=== PATIENT | female | born 1955 | race Caucasian/White ===

== ENCOUNTER 2017-12-24 21:46 | Inpatient (IN) | payer MEDICARE, SELFPAY ==
[2017-12-24 21:47] VITALS: BP 124/67; PULSE 100; RESP 22; TEMP 38.6; O2SAT 86; BMI 40.1
[2017-12-24 22:11] VITALS: BP 108/65; PULSE 91; RESP 23; O2SAT 92
--- NOTE | 2017-12-24 22:31 | CT_ITS ---
STUDY: CT BRAIN WITHOUT CONTRAST REASON FOR EXAM: Female, 62 years old. History of brain and lung cancer. Fever RADIATION DOSAGE (If Supplied By Facility): CTDIvol = ( 44.99 ) mGy, DLP = ( 812.98 ) mGycm TECHNIQUE: Transaxial CT imaging of the brain was performed without administration of intravenous contrast material. Individualized dose optimization techniques were used for this CT. COMPARISON: None. FINDINGS: There is no scalp hematoma or any abnormal scalp lesions. The calvarium is intact with no osteolytic or osteoblastic lesions and no fractures The basal cisterns, cortical sulci and ventricles are normal with no midline shift. No developmental anomalies of the ventricles Nonspecific microangiopathic changes involving the white matter tracts. There is no intra or extra-axial hemorrhage or tumor mass and no evidence for acute infarction The orbits and paranasal sinuses are normal. There is a right sided mastoiditis. The skull base and the upper cervical spine are also normal. CT/Brain/Head without Contrast IMPRESSION: No acute findings in the brain. No metastatic foci Right-sided mastoiditis Electronically Signed: Raul Walker, at 0:09 EST Tel , Service support ,
--- NOTE | 2017-12-24 22:52 | EKG12_ITS ---
Test Reason : FEVER Blood Pressure : / mmHG Vent. Rate : 092 BPM Atrial Rate : 092 BPM P-R Int : 136 ms QRS Dur : 084 ms QT Int : 354 ms P-R-T Axes : 033 012 047 degrees QTc Int : 437 ms Normal sinus rhythm Normal ECG Confirmed by ANDIE RENTERIA MD ([id number]), primer expeditor and drier MICAH DRAKE ([id number] on 12/30/2017 2:04:13 PM Referred By: CHRISTIN Confirmed By:ANDIE RENTERIA MD
[2017-12-24 23:04] LABS: Bacteria 0 SEEN /hpf (None Seen); Mucous, Urine 0 SEEN /hpf (<or=2+); Red Blood Cells-Urine 0 SEEN /hpf (0-5); Squamous Epithelial Cells - UA 0 SEEN /hpf (5-10); White Blood Cells 0 SEEN /hpf (0-5)
[2017-12-24 23:09] LABS: Color, Urine Yellow (Yellow); Glucose, Dipstick Normal (Normal); Ketone-Dipstick Negative (Negative); Leukocyte Esterase-Dipstick Negative /ul (Negative); Nitrite-Dipstick Negative (Negative); Occult Blood-Urine 10 /ul (Negative); Protein-Dipstick Negative (Negative); Urine Bilirubin Dipstick Negative (Negative); Urine Clarity Clear (Clear); Urine Urobilinogen 1 mg/dl (Normal)
[2017-12-24] MEDS: 0.9% Normal Saline 1,000 ML 1000 ML IV (23:10)
[2017-12-24 23:16] VITALS: BP 110/56; PULSE 93; RESP 18; O2SAT 90
[2017-12-24] MEDS: Acetaminophen 325 MG Tablet 650 MG PO (23:17)
[2017-12-24 23:21] LABS: Allen Test POS; Base Excess 6 mmol/L (-2 to +2); Bicarbonate 29.2 mmol/L (22-26); Blood Gas Specimen Type ART; O2 Delivery Device Nasal Can; PO2 55 mmHG (75-100); SITE R Radial; SO2 91 % (95-99); Time Given 2311; Total Carbon Dioxide 30 mmol/L; pH 7.52 (7.35-7.45)
[2017-12-24 23:24] LABS: Absolute Lymphocyte Count 0.41 X10^3/ul (0.83-4.51); Absolute Neutrophil Count 3.6 X10^3/uL (2.0-7.7); Basophil# 0.01 X10^3/uL; Basophil% 0.2 % (0-1); Eosinophil# 0.12 X10^3/uL; Eosinophils% 2.9 % (0-5); Hematocrit 35.4 % (37-47); Hemoglobin 11.6 g/dl (12.0-15.0); Lymphocyte # 0.41 X10^3/ul (4.0); Lymphocyte % 9.8 % (19-41); Mean Corp Hgb Conc 32.8 g/gl (32-36); Mean Corpuscular Hgb 27.9 pg (27.0-32.0); Mean Corpuscular Volume 85.1 fL (81-99); Mean Platelet Vol. 8.7 fl (6.2-12.0); Monocyte# 0.05 X10^3/uL; Monocyte% 1.2 % (0-10); Neutrophil # 3.61 X10^3/uL (2.7-7.7); Neutrophil % 85.9 % (47-70); Platelet Count 76 K/mm3 (150-450); RBC Distribution Width CV 16.7 % (11.6-14.6); RBC Distribution Width SD 51.5 fl (35.1-43.9); Red Blood Count 4.16 M/mm3 (4.2-5.4); White Blood Count 4.2 K/mm3 (4.4-11.0)
[2017-12-24 23:25] LABS: Differential Indicated SCAN CRITERIA MET; POSITIVE COUNT NO; POSITIVE DIFFERENTIAL YES; POSITIVE MORPHOLOGY NO
[2017-12-24 23:30] LABS: Partial Thromboplast Time 31.1 Seconds (24.1-36.2)
[2017-12-24 23:36] LABS: ALB/GLOB Ratio 0.6 RATIO (0.9-2.4); AST(SGOT) 29 U/L (15-37); Alanine Aminotransfer ALT/SGPT 17 U/L (13-56); Albumin, Serum 2.6 g/dL (3.2-5.0); Alkaline Phosphatase 98 U/L (45-117); Anion Gap 5 (5-15); BUN 19 mg/dL (7-18); BUN/Creat Ratio 21.3 RATIO (10-20); Calcium,Total 8.8 mg/dL (8.5-10.1); Chloride 99 mmol/L (98-107); Creatinine, Serum 0.89 mg/dL (0.55-1.02); EST Glomerular Filtration Rate 68 mL/min (>60); Est Glom Filt Rate - Afr Amer 82 mL/min (>60); Globulin 4.1 g/dL (2.2-4.2); Glucose 125 mg/dL (74-106); Potassium 4.5 mmol/L (3.5-5.1); Protein, Total 6.7 g/dL (6.4-8.2); Sodium Level 136 mmol/L (136-145)
[2017-12-24 23:48] LABS: Lactic Acid 1.3 mmol/L (0.4-2.0)
--- NOTE | 2017-12-24 23:50 | RAD_ITS ---
STUDY: X-RAY CHEST REASON FOR EXAM: Female, 62 years old. Fever TECHNIQUE: 2 views COMPARISON: May 30, 2017 FINDINGS: There is interval development of increased interstitial markings in the left perihilar region. No pleural effusions Normal size heart. Normal mediastinum and [place]. Normal visualized pulmonary arteries. Normal visualized aortic arch and descending thoracic aorta. Normal visualized thoracic spine. Normal visualized ribs, clavicles, and shoulders. There is no demonstrated abnormality of the visualized soft tissue structures of the upper abdomen. RAD/Chest PA and Lateral IMPRESSION: Interval development of a left perihilar opacity. Pneumonia suspected Electronically Signed: Raul Walker, at 0:14 EST Tel , Service support ,
[2017-12-25] VITALS (16 sets, daily range): BP systolic 99–127; BP diastolic 47–57; PULSE 76–99; RESP 16–24; TEMP 36.9–38.2; O2SAT 6–98; BMI 37.3
--- NOTE | 2017-12-25 00:15 | ED.VISSUMM ---
- ER Visit Summary Date of Service: 12/25/17 Chief Complaint: Fever, chills and cough History of Present Illness: The patient is a 62 F who has history of metastatic small cell carcinoma the lung presented to the emergency department because of fever, chills with cough. She she received chemo today. This completed her 3 day course. She underwent gamma knife surgery 3 weeks ago for metastatic lesions of the brain. She does complain of headache. She denies photophobia or stiffness of her neck. She does complain of shortness of breath and cough. Cough is nonproductive. She denies any pleuritic chest pain. She does complain of nausea without vomiting or diarrhea. She denies dysuria, frequency, urgency or hematuria. She denies any skin lesion or rash. She complains of generalized weakness. She denies trouble with her balance. Review of systems otherwise negative. 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 Physical Examination: Temperature 101.5 with heart rate of 100 and Restoril 22. Pulse ox was 86% on 3 L. She does wear oxygen at night but not during the day. She is not alert nor she oriented to time. Head is atraumatic no cephalic. Pupils equal round reactive. Other than C funduscopic exam. TMs are normal. Mucosa is dry. Posterior pharynx without erythema or exudate. Uvula midline. Trach is midline. Lungs reveal rales bilaterally left greater than right. Heart is rapid and regular without murmur, gallop or rub. Abdomen is soft and nontender. She appears slightly pale. Cranial 2 through 12 intact. Motor sensory exam is normal. Gait was not observed. Test Results: EKG reveals a sinus rhythm rate of 92 with no ischemic changes. Chest x-ray reveals consolidation left side that is new from May 2017. White count is 4.2 thousand with 86 segs no bands 10 lymphs. Electrode panel was marked for slight elevation in glucose and BUN of 125 and 19 respectively. Coags are normal. Urine is negative. Lactate is 1.3. ABG on 5 L was obtained. PH 7.52, PC O2 30, PaO2 55, bicarb 29.2 with a base excess of +6. Saturation 91%. Reveals a alkalemia. With a significant AA gradient. Emergency Department Course and Treatment: Patient has 3 out of 5 sirs criteria and since she recently was hospitalized for gamma knife treatment and recent chemotherapy she was treated for healthcare acquired pneumonia which was presumed based on respiratory findings and symptoms. Because of her allergies she received Azactam and levofloxacin. Treatment Plan: Oxygen therapy, IV antibiotics, fluid bolus and continued observation in the hospital Disposition: Admit [facility]. A DNR sheet was completed by ct. She has no CPR no intubation. Impression: 1. Healthcare acquired pneumonia, left 2. Respiratory failure with hypoxia 3. Sepsis 4. History of metastatic small cell carcinoma the lung 5. History of coronary disease 6. Hyperglycemia type II diabetic 7. History of spontaneous subarachnoid hemorrhage, remote This note was generated with [employer] dictation software. It may contain incorrect words, spelling, and punctuation that were not noted in review of the chart prior to signing ED Disposition - Plan for ED Patient: Chief Complaint: Fever Referrals: Vineet Cabral MD [Primary Care Provider] -
--- NOTE | 2017-12-25 00:23 | ED.DCSUM_ITS ---
- ER Visit Summary Date of Service: 12/25/17 Chief Complaint: Fever, chills and cough History of Present Illness: The patient is a 62 F who has history of metastatic small cell carcinoma the lung presented to the emergency department because of fever, chills with cough. She she received chemo today. This completed her 3 day course. She underwent gamma knife surgery 3 weeks ago for metastatic lesions of the brain. She does complain of headache. She denies photophobia or stiffness of her neck. She does complain of shortness of breath and cough. Cough is nonproductive. She denies any pleuritic chest pain. She does complain of nausea without vomiting or diarrhea. She denies dysuria, frequency , urgency or hematuria. She denies any skin lesion or rash. She complains of generalized weakness. She denies trouble with her balance. Review of systems otherwise negative. 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 Physical Examination: Temperature 101.5 with heart rate of 100 and Restoril 22. Pulse ox was 86% on 3 L. She does wear oxygen at night but not during the day. She is not alert nor she oriented to time. Head is atraumatic no cephalic. Pupils equal round reactive. Other than C funduscopic exam. TMs are normal. Mucosa is dry. Posterior pharynx without erythema or exudate. Uvula midline. Trach is midline. Lungs reveal rales bilaterally left greater than right. Heart is rapid and regular without murmur, gallop or rub. Abdomen is soft and nontender. She appears slightly pale. Cranial 2 through 12 intact. Motor sensory exam is normal. Gait was not observed. Test Results: EKG reveals a sinus rhythm rate of 92 with no ischemic changes. Chest x-ray reveals consolidation left side that is new from May 2017. White count is 4.2 thousand with 86 segs no bands 10 lymphs. Electrode panel was marked for slight elevation in glucose and BUN of 125 and 19 respectively. Coags are normal. Urine is negative. Lactate is 1.3. ABG on 5 L was obtained. PH 7.52, PC O2 30, PaO2 55, bicarb 29.2 with a base excess of +6. Saturation 91%. Reveals a alkalemia. With a significant AA gradient. Emergency Department Course and Treatment: Patient has 3 out of 5 sirs criteria and since she recently was hospitalized for gamma knife treatment and recent chemotherapy she was treated for healthcare acquired pneumonia which was presumed based on respiratory findings and symptoms. Because of her allergies she received Azactam and levofloxacin. Treatment Plan: Oxygen therapy, IV antibiotics, fluid bolus and continued observation in the hospital Disposition: Admit [facility]. A DNR sheet was completed by ma. She has no CPR no intubation. Impression: 1. Healthcare acquired pneumonia, left 2. Respiratory failure with hypoxia 3. Sepsis 4. History of metastatic small cell carcinoma the lung 5. History of coronary disease 6. Hyperglycemia type II diabetic 7. History of spontaneous subarachnoid hemorrhage, remote This note was generated with [employer] dictation software. It may contain incorrect words, spelling, and punctuation that were not noted in review of the chart prior to signing ED Disposition - Plan for ED Patient: Chief Complaint: Fever Referrals: Vineet Cabral MD [Primary Care Provider] -
[2017-12-25] MEDS: 0.9% Normal Saline 1,000 ML 250 ML IV ×2 (01:11→02:19)
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
--- NOTE | 2017-12-25 02:53 | PCM.HP.STD ---
Problem List (1) Metastatic small cell cancer Status: Acute (2) Metastasis to brain Status: Acute (3) Sepsis due to left perihilar pneumonia Status: Acute (4) Leukocytosis Status: Acute (5) Left leg weakness Status: Acute (6) Toxic encephalopathy Status: Acute (7) HTN (hypertension) Status: Chronic (8) DM type 2 (diabetes mellitus, type 2) Status: Chronic (9) Hyperlipidemia Status: Chronic (10) Obesity Status: Chronic (11) H/O subarachnoid hemorrhage Status: Chronic (12) CAD (coronary artery disease) Status: Chronic (13) History of smoking Status: Chronic History of Present Illness Date of Admission: 12/25/17 Chief Complaint: Fever with chills and cough for last 2 days The patient is a 62 year old F with history of 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 Gonzales came to ER with fever, chills and cough for last 2 days. Her last chemotherapy was 3 days ago. She complained of cough for about 4 5 days and it got much improved yesterday. Patient noticed her fever 102.5 Fahrenheit at home with shortness of breath. Patient also complaining of headache, nausea but denies vomiting. Patient has been mostly non-sedentary and uses walker for last 3-4 months secondary to arthritis. She also has history of coronary artery disease with a stent about 5-10 years ago. No chest pain. In ED, she was found to have a hypoxic 86% on 3 L of oxygen, temperature 101.5?F, tachycardia 100/min and tachypnea, respiratory rate 22/min. Chest x-ray shows left perihilar opacity with a strong suspicion of pneumonia. CT brain was done and shows no acute finding. [] Past Medical History Past Medical History (Chronic Problems): Chronic Problems HTN (hypertension) (Chronic) DM type 2 (diabetes mellitus, type 2) (Chronic) Hyperlipidemia (Chronic) Obesity (Chronic) H/O subarachnoid hemorrhage (Chronic) CAD (coronary artery disease) (Chronic) History of smoking (Chronic) Allergies Cephalosporins Allergy (Verified 12/24/17 21:53) Anaphylaxis latex Allergy (Verified 12/24/17 21:53) Rash Penicillins [PCN] Allergy (Verified 12/24/17 21:53) Anaphylaxis simvastatin Allergy (Verified 12/24/17 21:53) Unknown Home Medications: Ambulatory Orders Medication Instructions Recorded Atorvastatin Calcium [Lipitor] 20 mg PO QHS 05/27/17 Buprenorphine 20 Mcg/Hr [[place]rans 1 each TRANSDERM. TU 05/27/17 20 Mcg/Hr] Fluoxetine [Prozac] 20 mg PO DAILY 05/27/17 Metoprolol Succinate 25 mg PO DAILY 05/27/17 Insulin Glargine,Hum.rec.anlog 30 unit SQ QHS 06/24/17 [Lantus] Apixaban [Eliquis] 2.5 mg PO BID 12/24/17 Guaifenesin [Mucinex] 600 mg PO BID 12/24/17 Meclizine HCl [Antivert] 25 mg PO TID PRN PRN 12/24/17 Mirtazapine [Remeron] 15 mg PO QHS 12/24/17 Omeprazole [Prilosec] 20 mg PO DAILY 12/24/17 Oxycodone HCl [Roxicodone] 10 mg PO Q6H PRN 12/24/17 ProCHLORPERazine [Compazine] 10 mg PO Q6H PRN PRN 12/24/17 Surgical History: angioplasty, hysterectomy, - - section, fusion of C6 and C7 vertebrae. 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 Denies: Shortness of breath at rest Gastrointestinal: Denies: Abdominal Pain, Nausea, Vomiting Genitourinary: Denies: Dysuria Musculoskeletal: Reports: Joint Pain, Joint stiffness Skin: Denies: Rash, Wounds Neurological: Denies: Numbness, Tingling, Focal weakness Psychiatric: Reports: Anxiety. Denies: Depression, Homicidal Ideations, Suicidal Ideations Hematologic/ Lymphatic: Denies: Easy Bruising, Easy Bleeding VTE Information - Inpt Only VTE Present on Admission: No VTE Mechan Device Prophylaxis: SCD's VTE Pharm Prophylaxis ordered?: Yes Patient Problems: Active and Suspected Problems Metastatic small cell cancer (Acute) Metastasis to brain (Acute) Sepsis due to left perihilar pneumonia (Acute) - Physical Exam General: Alert, Oriented x3, Cooperative HEENT: Atraumatic, PERRLA, EOMI, Normocephalic Neck: Supple, No JVD, Negative Carotid Bruits Lungs: Diminished - To both lung, Rhonchi, Short of Breath, Tachypneic Cardiovascular: Regular rate, Regular Rhythm, Normal S1, Normal S2, No murmurs Abdomen: Bowel Sounds Present, Soft, Non Tender, Non-Distended Extremities: No edema, Capillary Refill Less than 3 Seconds Skin: No rashes, No breakdown Musculoskeletal: No Tenderness to Palpation of Joints or Extremities, No Muscle Wasting, Arthritic Changes Neurological: Cranial nerves II-XII grossly intact Psych/Mental Status: Normal Affect, Appropriate Vital Signs Temp Pulse Resp BP Pulse Ox 100.0 F H 82 16 107/52 L 98 12/25/17 01:42 12/25/17 01:42 12/25/17 01:42 12/25/17 01:42 12/25/17 01:42 Oxygen Flow Rate 5 Oxygen Delivery Method Nasal Cannula Weight: 203 lb 14.841 oz Body Mass Index (BMI) 37.3 Assessment/Plan Active and Suspected Problems Metastatic small cell cancer (Acute) Metastasis to brain (Acute) Sepsis due to left perihilar pneumonia (Acute) The patient is a 62 year old F with history of 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 Gonzales came to ER with fever, chills and cough for last 2 days. Her last chemotherapy was 3 days ago. She complained of cough for about 4 5 days and it got much improved yesterday. Patient noticed her fever 102.5 Fahrenheit at home with shortness of breath. Patient also complaining of headache, nausea but denies vomiting. Patient has been mostly non-sedentary and uses walker for last 3-4 months secondary to arthritis. She also has history of coronary artery disease with a stent about 5-10 years ago. No chest pain. In ED, she was found to have a hypoxic 86% on 3 L of oxygen, temperature 101.5?F, tachycardia 100/min and tachypnea, respiratory rate 22/min. Chest x-ray shows left perihilar opacity with a strong suspicion of pneumonia. CT brain was done and shows no acute finding. 1. SIRS ( hypoxic 86% on 3 L of oxygen, temperature 101.5?F, tachycardia 100/min and tachypnea, respiratory rate 22/min) due to left perihilar hospital-acquired pneumonia secondary to chemotherapy: Currently WBC count is low, 4.2 thousand, ANC 3.6 thousand, neutrophil count 85% but does not meet criteria for neutropenic fever, and ANC is more than 15,000. The patient is being admitted on the [facility] floor. Neutropenic precaution. Started on broad-spectrum antibiotic IV Zosyn and vancomycin. Blood cultures ?2, urinary antigens, sputum culture and respiratory panel ordered. ID consult. Started on IV antibiotics vancomycin, aztreonam and Levaquin for double antipseudomonal coverage and gram-positive cocci coverage. 2. Metastatic small cell cancer to brain: Consult patient's oncologist Dr. Gonzales for opinion for prognosis 3. Diabetes mellitus type 2: Accu-Chek before meals and at bedtime. A1c tomorrow a.m. 4. Coronary artery disease with remote stent: Stable. Continue home medication 5. Other comorbidities include hypertension, history of subarachnoid hemorrhage with no residual deficit, history of smoking, dyslipidemia and obesity and diffuse degenerative disease joint on walker: Home medication reconciliation done. Advanced directive: Patient agreed for DNR CC arrest. Patient does not want intubation/vasopressor or central line. Patient signed advanced directive paper. [] Laboratory Results 12/24/17 21:50: Urine Color Yellow, Urine Clarity Clear, Urine pH 7.0, Ur Specific [place] 1.010, Urine Protein Negative, Urine Glucose (UA) Normal, Urine Ketones Negative, Urine Occult Blood 10 H, Urine Nitrite Negative, Urine Bilirubin Negative, Urine Urobilinogen 1 H, Ur Leukocyte Esterase Negative, Urine RBC 0 SEEN, Urine WBC 0 SEEN, Ur Squamous Epith Cells 0 SEEN, Urine Bacteria 0 SEEN, Urine Mucus 0 SEEN 12/24/17 23:10: WBC 4.2 L, RBC 4.16 L, Hgb 11.6 L, Hct 35.4 L, MCV 85.1, MCH 27.9, MCHC 32.8, RDW 16.7 H, RDW Differential 51.5 H, Plt Count 76 L, MPV 8.7, Immature Gran % (Auto) 0.000, Neut % (Auto) 85.9 H, Lymph % (Auto) 9.8 L, [place] % (Auto) 1.2, Eos % (Auto) 2.9, Baso % (Auto) 0.2, Absolute Neuts (auto) 3.6, Absolute Lymphs (auto) 0.41 L, Total Counted Not Reportable 12/24/17 23:10: Sodium 136, Potassium 4.5, Chloride 99, Carbon Dioxide 32.0, Anion Gap 5, BUN 19 H, Creatinine 0.89, Estim Creat Clear Calc 52.50, Est GFR (MDRD) Af Amer 82, Est GFR (MDRD) Non-Af 68, BUN/Creatinine Ratio 21.3 H, Glucose 125 H, Calcium 8.8, Total Bilirubin 1.20 H, AST 29, ALT 17, Alkaline Phosphatase 98, Total Protein 6.7, Albumin 2.6 L, Globulin 4.1, Albumin/Globulin Ratio 0.6 L 12/24/17 23:10: Lactic Acid 1.3 12/24/17 23:10: PT 13.0, INR 1.0, APTT 31.1 12/24/17 23:12: Specimen Type ART, Sample Site R Radial, pH 7.52 H, Bicarbonate Actual 29.2 H, POC Total CO2 30, Base Excess 6 H, O2 Saturation 91 L, ABG pCO2 36.0, ABG pO2 55 L, [place] Test POS, O2 Delivery Device Nasal Can, Liter Flow 5.0, Blood Gas Notified Whom ED MD, Blood Gas Notified Time 2311 Clinical Impression(s) from Imaging Studies Brain CT 12/24/17 22:31 IMPRESSION: No acute findings in the brain. No metastatic foci Right-sided mastoiditis Electronically Signed: Raul Wlaker, at 0:09 EST Tel , Service support , Chest X-Ray 12/24/17 23:50 IMPRESSION: Interval development of a left perihilar opacity. Pneumonia suspected Electronically Signed: Raul Walker, at 0:14 EST Tel , Service support , Code Visit Inpatient E&M: 04005 Init Hosp L3
[2017-12-25 03:06] LABS: Bedside Glucose 128 mg/dL (70-110)
--- NOTE | 2017-12-25 03:11 | HP.PCM_ITS ---
Problem List (1) Metastatic small cell cancer Status: Acute (2) Metastasis to brain Status: Acute (3) Sepsis due to left perihilar pneumonia Status: Acute (4) Leukocytosis Status: Acute (5) Left leg weakness Status: Acute (6) Toxic encephalopathy Status: Acute (7) HTN (hypertension) Status: Chronic (8) DM type 2 (diabetes mellitus, type 2) Status: Chronic (9) Hyperlipidemia Status: Chronic (10) Obesity Status: Chronic (11) H/O subarachnoid hemorrhage Status: Chronic (12) CAD (coronary artery disease) Status: Chronic (13) History of smoking Status: Chronic History of Present Illness Date of Admission: 12/25/17 Chief Complaint: Fever with chills and cough for last 2 days The patient is a 62 year old F with history of 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 Gonzales came to ER with fever, chills and cough for last 2 days. Her last chemotherapy was 3 days ago. She complained of cough for about 4 5 days and it got much improved yesterday. Patient noticed her fever 102.5 Fahrenheit at home with shortness of breath. Patient also complaining of headache, nausea but denies vomiting. Patient has been mostly non-sedentary and uses walker for last 3-4 months secondary to arthritis. She also has history of coronary artery disease with a stent about 5-10 years ago. No chest pain. In ED, she was found to have a hypoxic 86% on 3 L of oxygen, temperature 101.5?F , tachycardia 100/min and tachypnea, respiratory rate 22/min. Chest x-ray shows left perihilar opacity with a strong suspicion of pneumonia. CT brain was done and shows no acute finding. [] Past Medical History Past Medical History (Chronic Problems): Chronic Problems HTN (hypertension) (Chronic) DM type 2 (diabetes mellitus, type 2) (Chronic) Hyperlipidemia (Chronic) Obesity (Chronic) H/O subarachnoid hemorrhage (Chronic) CAD (coronary artery disease) (Chronic) History of smoking (Chronic) Allergies Cephalosporins Allergy (Verified 12/24/17 21:53) Anaphylaxis latex Allergy (Verified 12/24/17 21:53) Rash Penicillins [PCN] Allergy (Verified 12/24/17 21:53) Anaphylaxis simvastatin Allergy (Verified 12/24/17 21:53) Unknown Home Medications: Ambulatory Orders Medication Instructions Recorded Atorvastatin Calcium [Lipitor] 20 mg PO QHS 05/27/17 Buprenorphine 20 Mcg/Hr [Butrans 1 each TRANSDERM. TU 05/27/17 20 Mcg/Hr] Fluoxetine [Prozac] 20 mg PO DAILY 05/27/17 Metoprolol Succinate 25 mg PO DAILY 05/27/17 Insulin Glargine,Hum.rec.anlog 30 unit SQ QHS 06/24/17 [Lantus] Apixaban [Eliquis] 2.5 mg PO BID 12/24/17 Guaifenesin [Mucinex] 600 mg PO BID 12/24/17 Meclizine HCl [Antivert] 25 mg PO TID PRN PRN 12/24/17 Mirtazapine [Remeron] 15 mg PO QHS 12/24/17 Omeprazole [Prilosec] 20 mg PO DAILY 12/24/17 Oxycodone HCl [Roxicodone] 10 mg PO Q6H PRN 12/24/17 ProCHLORPERazine [Compazine] 10 mg PO Q6H PRN PRN 12/24/17 Surgical History: angioplasty, hysterectomy, - - section, fusion of C6 and C7 vertebrae. 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 Denies: Shortness of breath at rest Gastrointestinal: Denies: Abdominal Pain, Nausea, Vomiting Genitourinary: Denies: Dysuria Musculoskeletal: Reports: Joint Pain, Joint stiffness Skin: Denies: Rash, Wounds Neurological: Denies: Numbness, Tingling, Focal weakness Psychiatric: Reports: Anxiety. Denies: Depression, Homicidal Ideations, Suicidal Ideations Hematologic/ Lymphatic: Denies: Easy Bruising, Easy Bleeding VTE Information - Inpt Only VTE Present on Admission: No VTE Mechan Device Prophylaxis: SCD's VTE Pharm Prophylaxis ordered?: Yes Patient Problems: Active and Suspected Problems Metastatic small cell cancer (Acute) Metastasis to brain (Acute) Sepsis due to left perihilar pneumonia (Acute) - Physical Exam General: Alert, Oriented x3, Cooperative HEENT: Atraumatic, PERRLA, EOMI, Normocephalic Neck: Supple, No JVD, Negative Carotid Bruits Lungs: Diminished - To both lung, Rhonchi, Short of Breath, Tachypneic Cardiovascular: Regular rate, Regular Rhythm, Normal S1, Normal S2, No murmurs Abdomen: Bowel Sounds Present, Soft, Non Tender, Non-Distended Extremities: No edema, Capillary Refill Less than 3 Seconds Skin: No rashes, No breakdown Musculoskeletal: No Tenderness to Palpation of Joints or Extremities, No Muscle Wasting, Arthritic Changes Neurological: Cranial nerves II-XII grossly intact Psych/Mental Status: Normal Affect, Appropriate Vital Signs Temp Pulse Resp BP Pulse Ox 100.0 F H 82 16 107/52 L 98 12/25/17 01:42 12/25/17 01:42 12/25/17 01:42 12/25/17 01:42 12/25/17 01:42 Oxygen Flow Rate 5 Oxygen Delivery Method Nasal Cannula Weight: 203 lb 14.841 oz Body Mass Index (BMI) 37.3 Assessment/Plan Active and Suspected Problems Metastatic small cell cancer (Acute) Metastasis to brain (Acute) Sepsis due to left perihilar pneumonia (Acute) The patient is a 62 year old F with history of 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 Gonzales came to ER with fever, chills and cough for last 2 days. Her last chemotherapy was 3 days ago. She complained of cough for about 4 5 days and it got much improved yesterday. Patient noticed her fever 102.5 Fahrenheit at home with shortness of breath. Patient also complaining of headache, nausea but denies vomiting. Patient has been mostly non-sedentary and uses walker for last 3-4 months secondary to arthritis. She also has history of coronary artery disease with a stent about 5-10 years ago. No chest pain. In ED, she was found to have a hypoxic 86% on 3 L of oxygen, temperature 101.5?F , tachycardia 100/min and tachypnea, respiratory rate 22/min. Chest x-ray shows left perihilar opacity with a strong suspicion of pneumonia. CT brain was done and shows no acute finding. 1. SIRS ( hypoxic 86% on 3 L of oxygen, temperature 101.5?F, tachycardia 100/ min and tachypnea, respiratory rate 22/min) due to left perihilar hospital- acquired pneumonia secondary to chemotherapy: Currently WBC count is low, 4.2 thousand, ANC 3.6 thousand, neutrophil count 85% but does not meet criteria for neutropenic fever, and ANC is more than 15,000. The patient is being admitted on the [facility] floor. Neutropenic precaution. Started on broad-spectrum antibiotic IV Zosyn and vancomycin. Blood cultures ?2, urinary antigens, sputum culture and respiratory panel ordered. ID consult. Started on IV antibiotics vancomycin, aztreonam and Levaquin for double antipseudomonal coverage and gram-positive cocci coverage. 2. Metastatic small cell cancer to brain: Consult patient's oncologist Dr. Gonzales for opinion for prognosis 3. Diabetes mellitus type 2: Accu-Chek before meals and at bedtime. A1c tomorrow a.m. 4. Coronary artery disease with remote stent: Stable. Continue home medication 5. Other comorbidities include hypertension, history of subarachnoid hemorrhage with no residual deficit, history of smoking, dyslipidemia and obesity and diffuse degenerative disease joint on walker: Home medication reconciliation done. Advanced directive: Patient agreed for DNR CC arrest. Patient does not want intubation/vasopressor or central line. Patient signed advanced directive paper. [] Laboratory Results 12/24/17 21:50: Urine Color Yellow, Urine Clarity Clear, Urine pH 7.0, Ur Specific [place] 1.010, Urine Protein Negative, Urine Glucose (UA) Normal, Urine Ketones Negative, Urine Occult Blood 10 H, Urine Nitrite Negative, Urine Bilirubin Negative, Urine Urobilinogen 1 H, Ur Leukocyte Esterase Negative, Urine RBC 0 SEEN, Urine WBC 0 SEEN, Ur Squamous Epith Cells 0 SEEN, Urine Bacteria 0 SEEN, Urine Mucus 0 SEEN 12/24/17 23:10: WBC 4.2 L, RBC 4.16 L, Hgb 11.6 L, Hct 35.4 L, MCV 85.1, MCH 27.9, MCHC 32.8, RDW 16.7 H, RDW Differential 51.5 H, Plt Count 76 L, MPV 8.7, Immature Gran % (Auto) 0.000, Neut % (Auto) 85.9 H, Lymph % (Auto) 9.8 L, [place] % (Auto) 1.2, Eos % (Auto) 2.9, Baso % (Auto) 0.2, Absolute Neuts (auto) 3.6, Absolute Lymphs (auto) 0.41 L, Total Counted Not Reportable 12/24/17 23:10: Sodium 136, Potassium 4.5, Chloride 99, Carbon Dioxide 32.0, Anion Gap 5, BUN 19 H, Creatinine 0.89, Estim Creat Clear Calc 52.50, Est GFR ( MDRD) Af Amer 82, Est GFR (MDRD) Non-Af 68, BUN/Creatinine Ratio 21.3 H, Glucose 125 H, Calcium 8.8, Total Bilirubin 1.20 H, AST 29, ALT 17, Alkaline Phosphatase 98, Total Protein 6.7, Albumin 2.6 L, Globulin 4.1, Albumin/ Globulin Ratio 0.6 L 12/24/17 23:10: Lactic Acid 1.3 12/24/17 23:10: PT 13.0, INR 1.0, APTT 31.1 12/24/17 23:12: Specimen Type ART, Sample Site R Radial, pH 7.52 H, Bicarbonate Actual 29.2 H, POC Total CO2 30, Base Excess 6 H, O2 Saturation 91 L, ABG pCO2 36.0, ABG pO2 55 L, [place]anning Test POS, O2 Delivery Device Nasal Can, Liter Flow 5.0 , Blood Gas Notified Whom ED MD, Blood Gas Notified Time 2311 Clinical Impression(s) from Imaging Studies Brain CT 12/24/17 22:31 IMPRESSION: No acute findings in the brain. No metastatic foci Right-sided mastoiditis Electronically Signed: Raul Walker, at 0:09 EST Tel , Service support , Chest X-Ray 12/24/17 23:50 IMPRESSION: Interval development of a left perihilar opacity. Pneumonia suspected Electronically Signed: Raul Walker, at 0:14 EST Tel , Service support , Code Visit Inpatient E&M: 85730 Init Hosp L3
[2017-12-25 05:35] LABS: Anion Gap 7 (5-15); BUN 15 mg/dL (7-18); BUN/Creat Ratio 27.3 RATIO (10-20); Chloride 103 mmol/L (98-107); Creatinine, Serum 0.55 mg/dL (0.55-1.02); EST Glomerular Filtration Rate 119 mL/min (>60); Est Glom Filt Rate - Afr Amer 144 mL/min (>60); Estimated Creatinine Clearance 84.95 ml/min; Glucose 102 mg/dL (74-106); Potassium 3.5 mmol/L (3.5-5.1); Sodium Level 138 mmol/L (136-145)
[2017-12-25 05:46] LABS: Absolute Lymphocyte Count 0.23 X10^3/ul (0.83-4.51); Absolute Neutrophil Count 2.5 X10^3/uL (2.0-7.7); Differential Indicated SCAN CRITERIA MET; Eosinophil# 0.08 X10^3/uL; Eosinophils% 2.8 % (0-5); Hematocrit 28.7 % (37-47); Hemoglobin 9.5 g/dl (12.0-15.0); Lymphocyte # 0.23 X10^3/ul (4.0); Mean Corp Hgb Conc 33.1 g/gl (32-36); Mean Corpuscular Hgb 28.5 pg (27.0-32.0); Mean Corpuscular Volume 86.2 fL (81-99); Mean Platelet Vol. 8.1 fl (6.2-12.0); Monocyte# 0.02 X10^3/uL; Monocyte% 0.7 % (0-10); Neutrophil # 2.53 X10^3/uL (2.7-7.7); Neutrophil % 88.2 % (47-70); POSITIVE COUNT NO; POSITIVE DIFFERENTIAL YES; POSITIVE MORPHOLOGY NO; Platelet Count 77 K/mm3 (150-450); RBC Distribution Width CV 16.1 % (11.6-14.6); Red Blood Count 3.33 M/mm3 (4.2-5.4); White Blood Count 2.9 K/mm3 (4.4-11.0)
[2017-12-25] MEDS: 0.9% Normal Saline 1,000 ML 150 ML IV ×3 (05:52→21:12)
[2017-12-25] MEDS: 0.9% NaCl Peripheral Flush Adult/Peds IV ×2 (05:52→09:27)
--- NOTE | 2017-12-25 05:55 | RAD_ITS ---
STUDY: X-RAY CHEST REASON FOR EXAM: Female, 62 years old. Metastatic lung cancer. TECHNIQUE: AP and lateral views of the chest. COMPARISON: Comparison is made with prior examination dated December 24, 2017. FINDINGS: EKG electrodes are seen. Since prior study, there has been progressive infiltrate in the left upper lobe and lingular segment of the left upper lobe. There is no demonstrated pleural abnormality. Normal size heart. Normal mediastinum and [place]. Normal visualized pulmonary arteries. Normal visualized aortic arch and descending thoracic aorta. Prior fusion of the lower cervical spine. Normal visualized ribs, clavicles, and shoulders. There is no demonstrated abnormality of the visualized soft tissue structures of the upper abdomen. RAD/Chest PA and Lateral IMPRESSION: Progressive infiltrate in the left upper lobe. Follow-up is recommended. Electronically Signed: Curtis Rodriguez MD at 12:17 EST Tel [phone], Service support ,
[2017-12-25] MEDS: Ipratropium/Albuterol Sulfate 3 ML AMPUL.NEB INHALATION ×3 (06:50→15:53)
[2017-12-25 07:16] LABS: Bedside Glucose 131 mg/dL (70-110)
[2017-12-25 07:46] LABS: Hemoglobin A1c 6.9 % (4.2-6.3)
--- NOTE | 2017-12-25 08:37 | CON.PCM_ITS ---
Problem List (1) Metastatic small cell cancer Status: Chronic Comment: Receiving palliative chemotherapy- Topotecan started on 12/22- (2) Sepsis due to left perihilar pneumonia Status: Acute (3) Toxic encephalopathy Status: Acute Comment: Metabolic encephalopathy secondary to sepsis & medications - Consult Date of Consult: 12/25/[address] Cook patient with metastatic small cell lung cancer with brain metastasis; status post gamma knife therapy, now receiving palliative chemotherapy. Patient presented with abscess secondary to pneumonia. My final recommendation will be communicated to Dr. Story and also by electronic medical record. 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 Patient has past medical history significant for hypertension, hyperlipidemia, diabetes mellitus, PTSD, anxiety disorder and previous heroin & opioids abuser in remission. She presented last summer with progressive weakness and problem with balance. CT of the brain show brain metastasis in the cerebellum obstructing the 4th ventricle. Patient was transferred to [facility] subsequent lung biopsy consistent with small cell lung cancer. She received whole brain radiation therapy in March of good response. She had palliative chemotherapy with carboplatin & etoposide from April - July,. She also had consolidative radiation therapy to the lung in July 2017. Patient remained in remission until October of this year when she has problems with weakness and balance again. MRI scan of her brain show a new left cerebellar metastasis with vasogenic edema. She completed gamma knife therapy last month. Repeat CT scan of chest and abdomen show no systemic disease. She started palliative chemotherapy with topotecan this week. She also has a history of DVT on Eliquis. She presented to ER with fever ( 102.5 ) last evening. She complained of cough for about 4 - 5 days and it got much improved yesterday. Patient noticed her fever 102.5 Fahrenheit at home with shortness of breath. Patient also complaining of headache, nausea but denies vomiting. Patient has been mostly non-sedentary and uses walker for last 3-4 months secondary to arthritis. Her family noticed significant weakness and increased lethargy. She also has history of coronary artery disease with a stent about 5-10 years ago. No chest pain or angina symptom. In ED, she was hypoxic 86% on 3 L of oxygen, temperature 101.5?F, tachycardia 100/min and tachypnea, respiratory rate 22/min. Chest x-ray shows left perihilar opacity with a strong suspicion of pneumonia. CT brain was done and shows no acute finding. No evidence of brain metastasis, bleeding or stroke Past Medical History Past Medical History (Chronic Problems): Chronic Problems HTN (hypertension) (Chronic) DM type 2 (diabetes mellitus, type 2) (Chronic) Hyperlipidemia (Chronic) Obesity (Chronic) H/O subarachnoid hemorrhage (Chronic) CAD (coronary artery disease) (Chronic) History of smoking (Chronic) Allergies Cephalosporins Allergy (Verified 12/24/17 21:53) Anaphylaxis latex Allergy (Verified 12/24/17 21:53) Rash Penicillins [PCN] Allergy (Verified 12/24/17 21:53) Anaphylaxis simvastatin Allergy (Verified 12/24/17 21:53) Unknown Home Medications: Ambulatory Orders Medication Instructions Recorded Atorvastatin Calcium [Lipitor] 20 mg PO QHS 05/27/17 Buprenorphine 20 Mcg/Hr [Butrans 1 each TRANSDERM. TU 05/27/17 20 Mcg/Hr] Fluoxetine [Prozac] 20 mg PO DAILY 05/27/17 Metoprolol Succinate 25 mg PO DAILY 05/27/17 Insulin Glargine,Hum.rec.anlog 30 unit SQ QHS 06/24/17 [Lantus] Apixaban [Eliquis] 2.5 mg PO BID 12/24/17 Guaifenesin [Mucinex] 600 mg PO BID 12/24/17 Meclizine HCl [Antivert] 25 mg PO TID PRN PRN 12/24/17 Mirtazapine [Remeron] 15 mg PO QHS 12/24/17 Omeprazole [Prilosec] 20 mg PO DAILY 12/24/17 Oxycodone HCl [Roxicodone] 10 mg PO Q6H PRN 12/24/17 ProCHLORPERazine [Compazine] 10 mg PO Q6H PRN PRN 12/24/17 Surgical History: angioplasty, hysterectomy, - - section, fusion of C6 and C7 vertebrae. 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 Denies: Shortness of breath at rest Gastrointestinal: Denies: Abdominal Pain, Nausea, Vomiting Genitourinary: Denies: Dysuria Musculoskeletal: Reports: Joint Pain, Joint stiffness Skin: Denies: Rash, Wounds Neurological: Denies: Numbness, Tingling, Focal weakness Psychiatric: Reports: Anxiety. Denies: Depression, Homicidal Ideations, Suicidal Ideations Hematologic/ Lymphatic: Denies: Easy Bruising, Easy Bleeding Metastatic small cell cancer (Chronic) Metastasis to brain (Chronic) Sepsis due to left perihilar pneumonia (Acute) - Physical Exam General: Alert, Oriented x3, Cooperative HEENT: Atraumatic, PERRLA, EOMI, Normocephalic Neck: Supple, No JVD, Negative Carotid Bruits Lungs: Diminished - To both lung, Rhonchi, Short of Breath, Tachypneic Cardiovascular: Regular rate, Regular Rhythm, Normal S1, Normal S2, No murmurs Abdomen: Bowel Sounds Present, Soft, Non Tender, Non-Distended Extremities: No edema, Capillary Refill Less than 3 Seconds Skin: No rashes, No breakdown Musculoskeletal: No Tenderness to Palpation of Joints or Extremities, No Muscle Wasting, Arthritic Changes Neurological: Cranial nerves II-XII grossly intact. Generalized weakness, steady gait. Psych/Mental Status: Normal Affect, Appropriate Vital Signs - 24 hr Temp Pulse Pulse Pulse Resp BP BP 12/25/17 07:38 78 12/25/17 06:50 78 24 H 12/25/17 06:08 76 12/25/17 01:51 80 12/25/17 01:42 100.0 F H 82 16 107/52 L 12/25/17 00:46 100.7 F H 88 16 102/49 L 12/25/17 00:08 97 18 108/47 L 12/24/17 23:16 93 18 110/56 L 12/24/17 22:11 91 23 H 108/65 12/24/17 21:47 101.5 F H 100 100 100 22 H 124/67 H 124/67 H Pulse Ox 12/25/17 07:38 12/25/17 06:50 92 12/25/17 06:08 12/25/17 01:51 12/25/17 01:42 98 12/25/17 00:46 92 12/25/17 00:08 90 12/24/17 23:16 90 12/24/17 22:11 92 12/24/17 21:47 86 Labs (Last 48 Hours) 12/24/17 12/24/17 12/24/17 21:50 23:10 23:10 WBC 4.2 L RBC 4.16 L Hgb 11.6 L Hct 35.4 L MCV 85.1 MCH 27.9 MCHC 32.8 RDW 16.7 H RDW Differential 51.5 H Plt Count 76 L MPV 8.7 Immature Gran % (Auto) 0.000 Neut % (Auto) 85.9 H Lymph % (Auto) 9.8 L [place] % (Auto) 1.2 Eos % (Auto) 2.9 Baso % (Auto) 0.2 Absolute Neuts (auto) 3.6 Absolute Lymphs (auto) 0.41 L Total Counted Not Reportable PT INR APTT Specimen Type Sample Site pH Bicarbonate Actual POC Total CO2 Base Excess O2 Saturation ABG pCO2 ABG pO2 Channing Test O2 Delivery Device Liter Flow Blood Gas Notified Whom Blood Gas Notified Time Sodium 136 Potassium 4.5 Chloride 99 Carbon Dioxide 32.0 Anion Gap 5 BUN 19 H Creatinine 0.89 Estim Creat Clear Calc 52.50 Est GFR (MDRD) Af Amer 82 Est GFR (MDRD) Non-Af 68 BUN/Creatinine Ratio 21.3 H Glucose 125 H Hemoglobin A1c Lactic Acid Calcium 8.8 Total Bilirubin 1.20 H AST 29 ALT 17 Alkaline Phosphatase 98 C-React Prot Ext Range Total Protein 6.7 Albumin 2.6 L Globulin 4.1 Albumin/Globulin Ratio 0.6 L Urine Color Yellow Urine Clarity Clear Urine pH 7.0 Ur Specific [place] 1.010 Urine Protein Negative Urine Glucose (UA) Normal Urine Ketones Negative Urine Occult Blood 10 H Urine Nitrite Negative Urine Bilirubin Negative Urine Urobilinogen 1 H Ur Leukocyte Esterase Negative Urine RBC 0 SEEN Urine WBC 0 SEEN Ur Squamous Epith Cells 0 SEEN Urine Bacteria 0 SEEN Urine Mucus 0 SEEN POC Glucose 12/24/17 12/24/17 12/24/17 23:10 23:10 23:12 WBC RBC Hgb Hct MCV MCH MCHC RDW RDW Differential Plt Count MPV Immature Gran % (Auto) Neut % (Auto) Lymph % (Auto) [place] % (Auto) Eos % (Auto) Baso % (Auto) Absolute Neuts (auto) Absolute Lymphs (auto) Total Counted PT 13.0 INR 1.0 APTT 31.1 Specimen Type ART Sample Site R Radial pH 7.52 H Bicarbonate Actual 29.2 H POC Total CO2 30 Base Excess 6 H O2 Saturation 91 L ABG pCO2 36.0 ABG pO2 55 L Channing Test POS O2 Delivery Device Nasal Can Liter Flow 5.0 Blood Gas Notified Whom ED Blood Gas Notified Time 2311 Sodium Potassium Chloride Carbon Dioxide Anion Gap BUN Creatinine Estim Creat Clear Calc Est GFR (MDRD) Af Amer Est GFR (MDRD) Non-Af BUN/Creatinine Ratio Glucose Hemoglobin A1c Lactic Acid 1.3 Calcium Total Bilirubin AST ALT Alkaline Phosphatase C-React Prot Ext Range Total Protein Albumin Globulin Albumin/Globulin Ratio Urine Color Urine Clarity Urine pH Ur Specific [place] Urine Protein Urine Glucose (UA) Urine Ketones Urine Occult Blood Urine Nitrite Urine Bilirubin Urine Urobilinogen Ur Leukocyte Esterase Urine RBC Urine WBC Ur Squamous Epith Cells Urine Bacteria Urine Mucus POC Glucose 12/25/17 12/25/17 12/25/17 02:58 05:00 05:00 WBC 2.9 L RBC 3.33 L Hgb 9.5 L Hct 28.7 L MCV 86.2 MCH 28.5 MCHC 33.1 RDW 16.1 H RDW Differential 50.0 H Plt Count 77 L MPV 8.1 Immature Gran % (Auto) 0.300 Neut % (Auto) 88.2 H Lymph % (Auto) 8.0 L [place] % (Auto) 0.7 Eos % (Auto) 2.8 Baso % (Auto) 0.0 Absolute Neuts (auto) 2.5 Absolute Lymphs (auto) 0.23 L Total Counted Not Reportable PT INR APTT Specimen Type Sample Site pH Bicarbonate Actual POC Total CO2 Base Excess O2 Saturation ABG pCO2 ABG pO2 Channing Test O2 Delivery Device Liter Flow Blood Gas Notified Whom Blood Gas Notified Time Sodium 138 Potassium 3.5 Chloride 103 Carbon Dioxide 28.0 Anion Gap 7 BUN 15 Creatinine 0.55 Estim Creat Clear Calc 84.95 Est GFR (MDRD) Af Amer 144 Est GFR (MDRD) Non-Af 119 BUN/Creatinine Ratio 27.3 H Glucose 102 Hemoglobin A1c Lactic Acid Calcium 8.0 L Total Bilirubin AST ALT Alkaline Phosphatase C-React Prot Ext Range 161.00 H Total Protein Albumin Globulin Albumin/Globulin Ratio Urine Color Urine Clarity Urine pH Ur Specific [place] Urine Protein Urine Glucose (UA) Urine Ketones Urine Occult Blood Urine Nitrite Urine Bilirubin Urine Urobilinogen Ur Leukocyte Esterase Urine RBC Urine WBC Ur Squamous Epith Cells Urine Bacteria Urine Mucus POC Glucose 128 H 12/25/17 12/25/17 05:00 06:54 WBC RBC Hgb Hct MCV MCH MCHC RDW RDW Differential Plt Count MPV Immature Gran % (Auto) Neut % (Auto) Lymph % (Auto) [place] % (Auto) Eos % (Auto) Baso % (Auto) Absolute Neuts (auto) Absolute Lymphs (auto) Total Counted PT INR APTT Specimen Type Sample Site pH Bicarbonate Actual POC Total CO2 Base Excess O2 Saturation ABG pCO2 ABG pO2 Channing Test O2 Delivery Device Liter Flow Blood Gas Notified Whom Blood Gas Notified Time Sodium Potassium Chloride Carbon Dioxide Anion Gap BUN Creatinine Estim Creat Clear Calc Est GFR (MDRD) Af Amer Est GFR (MDRD) Non-Af BUN/Creatinine Ratio Glucose Hemoglobin A1c 6.9 H Lactic Acid Calcium Total Bilirubin AST ALT Alkaline Phosphatase C-React Prot Ext Range Total Protein Albumin Globulin Albumin/Globulin Ratio Urine Color Urine Clarity Urine pH Ur Specific [place] Urine Protein Urine Glucose (UA) Urine Ketones Urine Occult Blood Urine Nitrite Urine Bilirubin Urine Urobilinogen Ur Leukocyte Esterase Urine RBC Urine WBC Ur Squamous Epith Cells Urine Bacteria Urine Mucus POC Glucose 131 H Microbiology 12/24/17 21:50 Urine Catheter - [place] Legionella Antigen - Final 12/24/17 21:50 Urine Catheter - [place] Streptococcus pneumoniae Antigen (M - Final Oxygen Flow Rate 5 Oxygen Delivery Method Nasal Cannula Weight: 203 lb 14.841 oz Body Mass Index (BMI) 37.3 Assessment/Plan Active and Suspected Problems Metastatic small cell cancer (chronic) Metastasis to brain (chronic) Metabolic encephalopathy (Acute) Sepsis due to left perihilar pneumonia (Acute) 1) complicated pneumonia; possible aspiration? PLAN: - Continue antibiotics & treatment of pneumonia - Pending blood and sputum cultures; narrow antibiotic spectrum. 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 - Consult physical therapy for strengthening and gait training. - Hold palliative chemotherapy until patient recover from pneumonia. cc: Dr. Ralf Kelley, Dr. Adan Cook, to [facility].
--- NOTE | 2017-12-25 08:59 | PN_ITS ---
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 Kelley who presented to the [facility] emergency department on 12/25/2017 complaining of fever , chills and cough for the preceding 2 days. Her last chemotherapy was 3 days prior to presentation to the emergency room. Had a temp to 102.5?F and shortness of breath. His medical history is also significant for hypertension, diabetes mellitus type 2, hyperlipidemia, obesity, history of subarachnoid hemorrhage, coronary artery disease. Vital signs at arrival to the emergency room were temp 101.5, heart rate 100, blood pressure 124/67, respiratory rate 22 and she was 86% saturated on a 3 L nasal cannula. Oxygen saturation on the 5 L cannula was 90-92%. She was pancytopenic with a white blood cell count of 4.2, hemoglobin of 11.6 and platelets of 76,000. There were 86% neutrophils. ABG on 5 L showed a pH of 7.52, PCO2 of 36 and a PO2 of 55. Urine had no WBCs. Chest x-ray showed increased interstitial disease/infiltrates on the left side. She was diagnosed with healthcare associated pneumonia in an immunocompromised patient with cancer/on chemotherapy and started on vancomycin , Aztreonam and Levaquin. ID consult was ordered. Code status was discussed with the pt and she is DNR CCA. T-max is 101.5. Vital signs are stable and she is currently 96% saturated on a 5 L nasal cannula. White blood cell count today is 2.9 with 88% neutrophils. Hemoglobin is 9.5 and platelets are stable at 77,000. BUN is 15 with a creatinine of 0.55 which is down from 0.89 at admission. Hemoglobin A1c is 6.9. Seen in consult by Dr. Mckeon and I discussed with him. Will continue the current antibiotics. She has anterior chest pain which increases with cough. States she is less SOB than admission She only wears oxygen at night at home. Has never had a sleep study. - Physical Exam General: Alert, Oriented x3, Cooperative, - - looks very fatigued and she was sleeping when I entered the room HEENT: Atraumatic, Normocephalic Oral: No Gingival or Mucosal Lesions/ Ulcerations, Dry Mucosa Neck: Supple, No Nodes, No Nuchal Rigidity, Trachea Midline Lungs: Diminished, Rhonchi, Wheezes - rare no rales Cardiovascular: Regular rate, Regular Rhythm, Normal S1, Normal S2, No Gallop Abdomen: Bowel Sounds Present, Soft, Non Tender, Non-Distended, - - no guarding with palpation Extremities: No cyanosis, No edema, No Calf Tenderness Skin: No rashes, No breakdown Neurological: Cranial nerves II-XII grossly intact, Neuro grossly intact Psych/Mental Status: Normal Affect, Appropriate Vital Signs Temp Pulse Resp BP Pulse Ox 100.0 F H 78 24 H 107/52 L 92 12/25/17 01:42 12/25/17 07:38 12/25/17 06:50 12/25/17 01:42 12/25/17 06:50 Oxygen Flow Rate 5 Oxygen Delivery Method Nasal Cannula Weight: 203 lb 14.841 oz Body Mass Index (BMI) 37.3 Intake and Output for Last 24 Hours 12/23/17 12/24/17 12/25/17 23:59 23:59 23:59 Intake Total 1649 / 1649 Output Total 2075 / 2075 Balance -426 / -426 Laboratory Tests Past 24 Hrs 12/25/17 12/25/17 12/25/17 05:00 05:00 05:00 WBC 2.9 L RBC 3.33 L Hgb 9.5 L Hct 28.7 L MCV 86.2 MCH 28.5 MCHC 33.1 RDW 16.1 H RDW Differential 50.0 H Plt Count 77 L MPV 8.1 Immature Gran % (Auto) 0.300 Neut % (Auto) 88.2 H Lymph % (Auto) 8.0 L [place] % (Auto) 0.7 Eos % (Auto) 2.8 Baso % (Auto) 0.0 Absolute Neuts (auto) 2.5 Absolute Lymphs (auto) 0.23 L Total Counted Not Reportable Sodium 138 Potassium 3.5 Chloride 103 Carbon Dioxide 28.0 Anion Gap 7 BUN 15 Creatinine 0.55 Estim Creat Clear Calc 84.95 Est GFR (MDRD) Af Amer 144 Est GFR (MDRD) Non-Af 119 BUN/Creatinine Ratio 27.3 H Glucose 102 Hemoglobin A1c 6.9 H Calcium 8.0 L C-React Prot Ext Range 161.00 H POC Glucose 12/25/17 12/25/17 06:54 02:58 POC Glucose 131 H 128 H Assessment/Plan Active and Suspected Problems Metastasis to brain (Acute) Sepsis due to left perihilar pneumonia (Acute) Impressions 1. HCAP with severe sepsis 2. Acute respiratory failure with hypoxemia 3. Pancytopenia secondary to chemotherapy/small cell lung cancer 4. Small cell lung cancer with metastasis to the brain 5. Diabetes mellitus type 2 6. Hx of DVT per Dr. Kelley - on Apixaban 7. Hypertension/hyperlipidemia/obesity/coronary artery disease-complicate care , management, recovery and prognosis Discussed with Dr. Mckeon-will continue Aztreonam, vancomycin and Levaquin Blood and sputum cultures are pending -sputum Gram stain has 4+ gram-positive cocci and 2+ white blood cells Recheck lab in the a.m. Start Granix when the absolute neutrophil count was less than [address] Ralf Kelley and will transfuse PLT's if less than 20,000. Discontinue Apixaban if the PLT's drop below 50,000 reorder home meds
[2017-12-25] MEDS: oxyCODONE 5 MG Tablet PO ×3 (09:26→21:32)
[2017-12-25] MEDS: Famotidine 20 MG Tablet PO ×2 (09:26→21:32)
[2017-12-25] MEDS: guaiFENesin 1,200 MG Tablet 1200 MG PO ×2 (09:26→21:57)
--- NOTE | 2017-12-25 09:54 | PCA ---
set pt up for am care
--- NOTE | 2017-12-25 11:51 | CON.PCM_ITS ---
Problem List (1) Sepsis due to left perihilar pneumonia Status: Acute Reason for Consult: pneumonia Consulted by: Dr. Story History of Present Illness: The patient is a 62 year old F with metastatic SCLC who presented yesterday after first dose of chemo. No port in place. Reports sudden onset of weakness , aches, fever/shakes/chills. Had been having new cough with white sputum and some SOB for past few weeks. No n/v/d. No hemoptysis. No recent abx. Taken to ED, fever to 101.5 here, cxs sent, started on vanc/aztreonam/levaquin. CXR showed focal infiltrate. Feeling a little better this AM. No sick contacts. Full ROS Performed and neg except as noted above. - Medical History Past Medical History (Chronic Problems): Chronic Problems Metastatic small cell cancer (Chronic) Receiving palliative chemotherapy- Topotecan started on 12/22- HTN (hypertension) (Chronic) DM type 2 (diabetes mellitus, type 2) (Chronic) Hyperlipidemia (Chronic) Obesity (Chronic) H/O subarachnoid hemorrhage (Chronic) CAD (coronary artery disease) (Chronic) History of smoking (Chronic) Allergies/Adverse Reactions: Allergies Cephalosporins Allergy (Verified 12/24/17 21:53) Anaphylaxis latex Allergy (Verified 12/24/17 21:53) Rash Penicillins [PCN] Allergy (Verified 12/24/17 21:53) Anaphylaxis simvastatin Allergy (Verified 12/24/17 21:53) Unknown Home Medications: Ambulatory Orders Medication Instructions Recorded Atorvastatin Calcium [Lipitor] 20 mg PO QHS 05/27/17 Buprenorphine 20 Mcg/Hr [Butrans 1 each TRANSDERM. TU 05/27/17 20 Mcg/Hr] Fluoxetine [Prozac] 20 mg PO DAILY 05/27/17 Metoprolol Succinate 25 mg PO DAILY 05/27/17 Insulin Glargine,Hum.rec.anlog 30 unit SQ QHS 06/24/17 [Lantus] Apixaban [Eliquis] 2.5 mg PO BID 12/24/17 Guaifenesin [Mucinex] 600 mg PO BID 12/24/17 Meclizine HCl [Antivert] 25 mg PO TID PRN PRN 12/24/17 Mirtazapine [Remeron] 15 mg PO QHS 12/24/17 Omeprazole [Prilosec] 20 mg PO DAILY 12/24/17 Oxycodone HCl [Roxicodone] 10 mg PO Q6H PRN 12/24/17 ProCHLORPERazine [Compazine] 10 mg PO Q6H PRN PRN 12/24/17 - Social History SMOKING STATUS:: Former smoker Vital Signs Temp Pulse Resp BP Pulse Ox 98.4 F 77 20 H 122/52 H 96 12/25/17 09:20 12/25/17 09:20 12/25/17 09:20 12/25/17 09:20 12/25/17 09:20 Oxygen Flow Rate 5 Oxygen Delivery Method Nasal Cannula Weight: 92.5 kg Body Mass Index (BMI) 37.3 Microbiology Past 72 Hours 12/25/17 09:30 Gram Stain - Final Sputum, Expectorated/Coughed Laboratory Tests Past 24 Hrs 12/25/17 12/25/17 12/25/17 05:00 05:00 05:00 WBC 2.9 L RBC 3.33 L Hgb 9.5 L Hct 28.7 L MCV 86.2 MCH 28.5 MCHC 33.1 RDW 16.1 H RDW Differential 50.0 H Plt Count 77 L MPV 8.1 Immature Gran % (Auto) 0.300 Neut % (Auto) 88.2 H Lymph % (Auto) 8.0 L [place] % (Auto) 0.7 Eos % (Auto) 2.8 Baso % (Auto) 0.0 Absolute Neuts (auto) 2.5 Absolute Lymphs (auto) 0.23 L Total Counted Not Reportable Sodium 138 Potassium 3.5 Chloride 103 Carbon Dioxide 28.0 Anion Gap 7 BUN 15 Creatinine 0.55 Estim Creat Clear Calc 84.95 Est GFR (MDRD) Af Amer 144 Est GFR (MDRD) Non-Af 119 BUN/Creatinine Ratio 27.3 H Glucose 102 Hemoglobin A1c 6.9 H Calcium 8.0 L C-React Prot Ext Range 161.00 H - Other Studies Radiology: [] reviewed Other Studies: [] Route of nutrition/ use of supplements: [] Nutritional Intake: [] IV Site: [] Kong Catheter: [] - Physical Exam General: Alert, Oriented x3, Cooperative HEENT: Atraumatic, PERRLA, EOMI Neck: Supple, No Nodes Lungs: Diminished, Rhonchi Cardiovascular: Regular rate, Regular Rhythm Abdomen: Bowel Sounds Present, Soft, Non Tender, Non-Distended Extremities: No cyanosis Skin: No rashes IV Site: Peripheral, without redness Musculoskeletal: No Tenderness to Palpation of Joints or Extremities Neurological: Cranial nerves II-XII grossly intact - Assessment/Plan Antibiotics: [] Assessment/Plan: [] Active and Suspected Problems Metastasis to brain (Acute) Sepsis due to left perihilar pneumonia (Acute) Sputum cx with GPC seen on gram stain. Check resp viral panel. Cont vanc/ aztreonam for now. Will stop levaquin, UAgs are neg. Thank you, will follow.
[2017-12-25 12:11] LABS: Bedside Glucose 167 mg/dL (70-110)
--- NOTE | 2017-12-25 12:12 | CPS ---
Pt unable to do PEP and I.S. at this time
--- NOTE | 2017-12-25 12:44 | PCM.RX.CS ---
Subjective/Objective Date: 12/25/17 Time: 12:45 Antibiotic: Vancomycin Type of Consult: New start Indications for Therapy: SUSPECTED SEPSIS SECONDARY TO L-SIDED PNEUMONIA Labs: Sodium 138 mmol/L (136-145) 12/25/17 05:00 Potassium 3.5 mmol/L (3.5-5.1) 12/25/17 05:00 Chloride 103 mmol/L (98-107) 12/25/17 05:00 Carbon Dioxide 28.0 mmol/L (21.0-32.0) 12/25/17 05:00 Anion Gap 7 (5-15) 12/25/17 05:00 BUN 15 mg/dL (7-18) 12/25/17 05:00 Creatinine 0.55 mg/dL (0.55-1.02) 12/25/17 05:00 Est GFR (MDRD) Af Amer 144 mL/min (>60) 12/25/17 05:00 Est GFR (MDRD) Non-Af 119 mL/min (>60) 12/25/17 05:00 BUN/Creatinine Ratio 27.3 RATIO (10-20) H 12/25/17 05:00 Glucose 102 mg/dL (74-106) 12/25/17 05:00 Estimated Creatinine Clearance: 53 ML/MIN Pharmacy Plan for Drug Dosing: Pharmacy to manage vancomycin per consultation for the treatment of suspected sepsis secondary to L-sided pneumonia. The patient was initially placed on vancomycin 1500mg IV Q36hrs, and received one dose 12/25 @0300. Current SCx showing GPC, UrAg negative. ID has been consulted on this patient as well. Current SCr 0.89 (CrCl 53mL/min). Given we are treating a pneumonia, will target a trough of 15-20 for this patient. Plan/ Recommendations: 1. STOP vancomycin 1500mg IV Q36hrs 2. START vancomycin 1500mg IV Q18hrs (16.2 mg/kg based on TBW of 92.5kg) 3. Trough scheduled for 12/27/17 @0830 (Prior to 4th total dose of vancomycin given) 4. Pharmacy will continue to monitor renal function, trough values, and make adjustments as necessary
[2017-12-25] MEDS: Acetaminophen 325 MG Tablet 650 MG PO (16:16)
[2017-12-25 17:31] LABS: Bedside Glucose 127 mg/dL (70-110)
[2017-12-25] MEDS: APIXABAN 2.5 MG TABLET PO (21:31)
[2017-12-25] MEDS: Atorvastatin Calcium 20 MG Tablet PO (21:31)
[2017-12-25] MEDS: Mirtazapine 15 MG Tablet PO (21:32)
[2017-12-25 22:11] LABS: Bedside Glucose 241 mg/dL (70-110)
[2017-12-25 23:41] LABS: Bedside Glucose 163 mg/dL (70-110)
[2017-12-26] VITALS (16 sets, daily range): BP systolic 111–148; BP diastolic 49–87; PULSE 74–107; RESP 18–20; TEMP 36.6–38.7; O2SAT 91–96
[2017-12-26] MEDS: Acetaminophen 325 MG Tablet 650 MG PO ×2 (03:04→20:17)
[2017-12-26 03:26] LABS: Bedside Glucose 132 mg/dL (70-110)
[2017-12-26 04:00] LABS: Absolute Lymphocyte Count 0.23 X10^3/ul (0.83-4.51); Absolute Neutrophil Count 2.3 X10^3/uL (2.0-7.7); Basophil# 0.01 X10^3/uL; Basophil% 0.4 % (0-1); Eosinophil# 0.05 X10^3/uL; Hematocrit 28.2 % (37-47); Hemoglobin 9.3 g/dl (12.0-15.0); Lymphocyte # 0.23 X10^3/ul (4.0); Mean Corpuscular Hgb 28.1 pg (27.0-32.0); Mean Corpuscular Volume 85.2 fL (81-99); Mean Platelet Vol. 7.9 fl (6.2-12.0); Monocyte# 0.01 X10^3/uL; Monocyte% 0.4 % (0-10); Neutrophil # 2.25 X10^3/uL (2.7-7.7); Neutrophil % 88.2 % (47-70); Platelet Count 61 K/mm3 (150-450); RBC Distribution Width CV 15.8 % (11.6-14.6); RBC Distribution Width SD 47.5 fl (35.1-43.9); Red Blood Count 3.31 M/mm3 (4.2-5.4); White Blood Count 2.6 K/mm3 (4.4-11.0)
[2017-12-26 04:01] LABS: Differential Indicated SCAN CRITERIA MET; POSITIVE COUNT NO; POSITIVE DIFFERENTIAL YES; POSITIVE MORPHOLOGY NO
[2017-12-26 04:03] LABS: Anion Gap 8 (5-15); BUN 10 mg/dL (7-18); BUN/Creat Ratio 19.3 RATIO (10-20); Calcium,Total 8.1 mg/dL (8.5-10.1); Chloride 100 mmol/L (98-107); Creatinine, Serum 0.52 mg/dL (0.55-1.02); EST Glomerular Filtration Rate 127 mL/min (>60); Est Glom Filt Rate - Afr Amer 154 mL/min (>60); Estimated Creatinine Clearance 89.86 ml/min; Glucose 118 mg/dL (74-106); Potassium 3.4 mmol/L (3.5-5.1); Sodium Level 134 mmol/L (136-145)
[2017-12-26 04:07] LABS: Lactic Acid 0.7 mmol/L (0.4-2.0)
[2017-12-26] MEDS: 0.9% Normal Saline 1,000 ML 150 ML IV (07:02)
[2017-12-26] MEDS: Ipratropium/Albuterol Sulfate 3 ML AMPUL.NEB INHALATION ×3 (07:07→19:16)
[2017-12-26 07:11] LABS: Bedside Glucose 119 mg/dL (70-110)
--- NOTE | 2017-12-26 08:06 | PCM.PROGNOTE ---
Patient Problems: Active and Suspected Problems Metastasis to brain (Acute) Sepsis due to left perihilar pneumonia (Acute) Subjective: Patient has no complaint today. She still has white & thick sputum when she coughs. Otherwise no shortness of breath, chest pain, nausea, vomiting or diarrhea. No Headaches, + generalized weakness and problem with balance. - Physical Exam General: Alert, Oriented x3 HEENT: Atraumatic Oral: Moist Mucosa Neck: Supple, No JVD Lungs: No rhonchi, No wheeze, No rales, Diminished - Left base Cardiovascular: Regular rate, Regular Rhythm, Normal S1, Normal S2, No murmurs Abdomen: Bowel Sounds Present, Soft, Non Tender Extremities: No clubbing, No cyanosis, No edema Skin: No rashes Lymphatic: No Cervical, Supraclavicular, or Inguinal Adenopathy Neurological: Neuro grossly intact Psych/Mental Status: Appropriate Vital Signs Temp Pulse Resp BP Pulse Ox 97.9 F 85 20 H 114/58 L 93 12/26/17 07:08 12/26/17 04:34 12/26/17 04:34 12/26/17 04:34 12/26/17 04:34 Oxygen Flow Rate 4 Oxygen Delivery Method Nasal Cannula Weight: 203 lb 14.841 oz Body Mass Index (BMI) 37.3 Intake and Output for Last 24 Hours 12/24/17 12/25/17 12/26/17 23:59 23:59 23:59 Intake Total 3030 / 3030 2384 / 2384 Output Total 4175 / 4175 2650 / 2650 Balance -1145 / -1145 -266 / -266 Microbiology Past 72 Hours 12/25/17 13:55 - Final Mucosa - Nose 12/25/17 09:30 Gram Stain - Final Sputum, Expectorated/Coughed Laboratory Tests Past 24 Hrs 12/26/17 12/26/17 12/26/17 03:32 03:32 03:32 WBC 2.6 L RBC 3.31 L Hgb 9.3 L Hct 28.2 L MCV 85.2 MCH 28.1 MCHC 33.0 RDW 15.8 H RDW Differential 47.5 H Plt Count 61 L MPV 7.9 Immature Gran % (Auto) 0.000 Neut % (Auto) 88.2 H Lymph % (Auto) 9.0 L [place] % (Auto) 0.4 Eos % (Auto) 2.0 Baso % (Auto) 0.4 Absolute Neuts (auto) 2.3 Absolute Lymphs (auto) 0.23 L Total Counted Not Reportable Sodium 134 L Potassium 3.4 L Chloride 100 Carbon Dioxide 26.0 Anion Gap 8 BUN 10 Creatinine 0.52 L Estim Creat Clear Calc 89.86 Est GFR (MDRD) Af Amer 154 Est GFR (MDRD) Non-Af 127 BUN/Creatinine Ratio 19.3 Glucose 118 H Lactic Acid 0.7 Calcium 8.1 L POC Glucose 12/26/17 12/26/17 12/25/17 06:58 03:03 23:27 POC Glucose 119 H 132 H 163 H 12/25/17 12/25/17 12/25/17 22:00 16:49 12:04 POC Glucose 241 H 127 H 167 H Assessment/Plan Active and Suspected Problems Metastasis to brain (Acute) Sepsis due to left perihilar pneumonia (Acute) 1) complicated pneumonia PLAN: - ID consult appreciated - Continue antibiotics & treatment of pneumonia - Pending blood and sputum cultures; narrow antibiotic spectrum. 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 - Consult physical therapy for strengthening and gait training. - Hold palliative chemotherapy until patient recover from pneumonia. Follow-up in my office in 2 weeks. We'll plan on her 2nd cycle of chemotherapy after she recovered from pneumonia.
--- NOTE | 2017-12-26 10:20 | PN_ITS ---
Patient Problems: Active and Suspected Problems Metastasis to brain (Acute) Sepsis due to left perihilar pneumonia (Acute) Subjective: Day #2 Levaquin, Aztreonam, Vanco T max overnight was 101.7. Current temp is 97.9. Vital signs are stable. She is currently 93% on 4 L nasal cannula. Poor oral intake. fluid balance since admission is -1411. All lab was personally reviewed. White blood cell count today is 2.6 with 88% neutrophils. EBER globin is stable at 9.3. Leaflets are 61,000. Potassium is low at 3.4. Blood sugars are controlled. Sputum Gram stain had 4+ gram-positive cocci and 2+ white blood cells, culture is pending nasal swab was negative for RSV and influenza. Urine culture has no growth blood cultures have no growth to date - Physical Exam General: Alert, Oriented x3, Cooperative, - - more alert than yesterday HEENT: PERRLA, EOMI Oral: Moist Mucosa, No Gingival or Mucosal Lesions/ Ulcerations Neck: No JVD, No Nodes, No Nuchal Rigidity, Trachea Midline Lungs: No rhonchi, No wheeze, Diminished, Rales - left side, - - not tachypneic and has no conversational dyspnea today Cardiovascular: Regular rate, Regular Rhythm, Normal S1, Normal S2, No Gallop Abdomen: Bowel Sounds Present, Soft, Non Tender, Non-Distended, Obese Extremities: No cyanosis, No Calf Tenderness Skin: No rashes Neurological: Cranial nerves II-XII grossly intact, Neuro grossly intact Psych/Mental Status: Normal Affect, Appropriate Vital Signs Temp Pulse Resp BP Pulse Ox 97.9 F 85 20 H 114/58 L 93 12/26/17 07:08 12/26/17 04:34 12/26/17 04:34 12/26/17 04:34 12/26/17 04:34 Oxygen Flow Rate 4 Oxygen Delivery Method Nasal Cannula Weight: 203 lb 14.841 oz Body Mass Index (BMI) 37.3 Intake and Output for Last 24 Hours 12/24/17 12/25/17 12/26/17 23:59 23:59 23:59 Intake Total 3030 / 3030 2384 / 2384 Output Total 4175 / 4175 2650 / 2650 Balance -1145 / -1145 -266 / -266 Microbiology Past 72 Hours 12/25/17 13:55 - Final Mucosa - Nose 12/25/17 09:30 Gram Stain - Final Sputum, Expectorated/Coughed Laboratory Tests Past 24 Hrs 12/26/17 12/26/17 12/26/17 03:32 03:32 03:32 WBC 2.6 L RBC 3.31 L Hgb 9.3 L Hct 28.2 L MCV 85.2 MCH 28.1 MCHC 33.0 RDW 15.8 H RDW Differential 47.5 H Plt Count 61 L MPV 7.9 Immature Gran % (Auto) 0.000 Neut % (Auto) 88.2 H Lymph % (Auto) 9.0 L [place] % (Auto) 0.4 Eos % (Auto) 2.0 Baso % (Auto) 0.4 Absolute Neuts (auto) 2.3 Absolute Lymphs (auto) 0.23 L Total Counted Not Reportable Sodium 134 L Potassium 3.4 L Chloride 100 Carbon Dioxide 26.0 Anion Gap 8 BUN 10 Creatinine 0.52 L Estim Creat Clear Calc 89.86 Est GFR (MDRD) Af Amer 154 Est GFR (MDRD) Non-Af 127 BUN/Creatinine Ratio 19.3 Glucose 118 H Lactic Acid 0.7 Calcium 8.1 L POC Glucose 12/26/17 12/26/17 12/25/17 06:58 03:03 23:27 POC Glucose 119 H 132 H 163 H 12/25/17 12/25/17 12/25/17 22:00 16:49 12:04 POC Glucose 241 H 127 H 167 H Assessment/Plan Active and Suspected Problems Metastasis to brain (Acute) Sepsis due to left perihilar pneumonia (Acute) Impressions 1. HCAP with severe sepsis 2. Acute respiratory failure with hypoxemia 3. Pancytopenia secondary to chemotherapy/small cell lung cancer 4. Small cell lung cancer with metastasis to the brain 5. Diabetes mellitus type 2 6. Hx of DVT per Dr. Kelley - on Apixaban 7. Hypertension/hyperlipidemia/obesity/coronary artery disease-complicate care , management, recovery and prognosis continue the Aztreonam....Levaquin discontinued by Dr. Mckeon Recheck the lab in the AM Increase activity as tolerated I suspect she will need oxygen at DC and may need SNF because she is very weak. Will need pulse ox on RA before and after ambulation prior to DC Reviewed Dr. Mckeon's note and appreciate his input await the sputum culture results. Code Visit Inpatient E&M: 34842 Subs Hosp L2
[2017-12-26] MEDS: FLUoxetine 20 MG Capsule PO (10:29)
[2017-12-26] MEDS: Metoprolol(XL)Succ 25 MG Tablet PO (10:29)
[2017-12-26] MEDS: oxyCODONE 5 MG Tablet PO (10:29)
[2017-12-26] MEDS: guaiFENesin 1,200 MG Tablet 1200 MG PO ×2 (10:29→21:31)
[2017-12-26] MEDS: Famotidine 20 MG Tablet PO ×2 (10:29→21:31)
[2017-12-26] MEDS: APIXABAN 2.5 MG TABLET PO ×2 (10:29→21:32)
--- NOTE | 2017-12-26 11:21 | PN.ID_ITS ---
Patient Problems: Active and Suspected Problems Metastasis to brain (Acute) Sepsis due to left perihilar pneumonia (Acute) Subjective: Feeling better, bringing up sputum. No fever or chills. No n/v/d. - Physical Exam General: Alert, Cooperative, No apparent distress Lungs: Diminished Cardiovascular: Regular rate, Regular Rhythm Abdomen: Soft, Non Tender, Non-Distended Skin: No rashes Vital Signs Temp Pulse Resp BP Pulse Ox 99.1 F 87 20 H 134/58 H 96 12/26/17 10:20 12/26/17 10:29 12/26/17 10:20 12/26/17 10:20 12/26/17 10:20 Oxygen Flow Rate 3 Oxygen Delivery Method Nasal Cannula Weight: 92.5 kg Body Mass Index (BMI) 37.3 Intake and Output for Last 24 Hours 12/24/17 12/25/17 12/26/17 23:59 23:59 23:59 Intake Total 3030 / 3030 2384 / 2384 Output Total 4175 / 4175 2650 / 2650 Balance -1145 / -1145 -266 / -266 Microbiology Past 72 Hours 12/25/17 13:55 - Final Mucosa - Nose 12/25/17 09:30 Gram Stain - Final Sputum, Expectorated/Coughed Laboratory Tests Past 24 Hrs 12/26/17 12/26/17 12/26/17 03:32 03:32 03:32 WBC 2.6 L RBC 3.31 L Hgb 9.3 L Hct 28.2 L MCV 85.2 MCH 28.1 MCHC 33.0 RDW 15.8 H RDW Differential 47.5 H Plt Count 61 L MPV 7.9 Immature Gran % (Auto) 0.000 Neut % (Auto) 88.2 H Lymph % (Auto) 9.0 L [place] % (Auto) 0.4 Eos % (Auto) 2.0 Baso % (Auto) 0.4 Absolute Neuts (auto) 2.3 Absolute Lymphs (auto) 0.23 L Total Counted Not Reportable Sodium 134 L Potassium 3.4 L Chloride 100 Carbon Dioxide 26.0 Anion Gap 8 BUN 10 Creatinine 0.52 L Estim Creat Clear Calc 89.86 Est GFR (MDRD) Af Amer 154 Est GFR (MDRD) Non-Af 127 BUN/Creatinine Ratio 19.3 Glucose 118 H Lactic Acid 0.7 Calcium 8.1 L POC Glucose 12/26/17 12/26/17 12/25/17 06:58 03:03 23:27 POC Glucose 119 H 132 H 163 H 12/25/17 12/25/17 12/25/17 22:00 16:49 12:04 POC Glucose 241 H 127 H 167 H Route of nutrition/ use of supplements: [] Nutritional Intake: [] IV Site: [] Kong Catheter: [] - Assessment/Plan Antibiotics: [] Assessment/Plan: [] Active and Suspected Problems Metastasis to brain (Acute) Sepsis due to left perihilar pneumonia (Acute) - Sputum cx with heavy GPC seen on gram stain. Ordered resp viral panel. Cont vanc/aztreonam for now. Fever last night but overall feeling better. will follow.
[2017-12-26 12:01] LABS: Bedside Glucose 86 mg/dL (70-110)
--- NOTE | 2017-12-26 12:32 | CASEMGMT ---
Addendum entered by Johanna Oneil 12/26/17 14:34: Norma from [facility] said they can take pt, asked if pt can bring pain patch from home as they are not able to get it there. Norma had asked about pt's chemo also, SW spoke w/Dr. Kelley directly and he said pt would not start up again w/chemo until [facility] the jail. OWEN let Norma know this also. OWEN completed hospital exemption in [place], placed it on the chart w/green sheet and transport form. SW spoke w/pt, let her know [facility] can take her when she is ready, Friday or after. Pt agreeable. SW also told her she needs to bring her pain patch from home. Pt states she replaces it every Friday. SW inquired if she would like SW to call her mother to let her know the plan, she states she would like this SW to call her mother. OWEN called pt's mother, let her know that pt will go to [facility] when she is ready, but not before Friday. OWEN asked her also if she can bring pt's pain patch to the jail and give to the nurses there, as the jail cannot get it. She states can do this. No further needs at this time. If pt is still here Friday, OWEN will follow up. Otherwise, it is anticipated pt will go to [facility] on Friday. RAJINDER Cross, [employer] Original Note: Addendum entered by Johanna Oneil 12/26/17 14:18: Norma from [facility] states they will likely be able to take pt, she just needs to run her meds through to check on the cost, will call this OWEN back shortly. RAJINDER Cross, [employer] Original Note: As per physician, pt may need to go to SNF at discharge. CM spoke w/pt, she would like to go to [facility] or [facility]. OWEN called [facility], spoke miguel/Norma, referral faxed. OWEN will continue to follow. RAJINDER Cross, [employer]
[2017-12-26 17:16] LABS: Bedside Glucose 124 mg/dL (70-110)
--- NOTE | 2017-12-26 19:16 | CPS ---
Pt refused both IS and PEP therapy at this time because she wanted to eat a snack.
[2017-12-26] MEDS: Atorvastatin Calcium 20 MG Tablet PO (21:31)
[2017-12-26] MEDS: Mirtazapine 15 MG Tablet PO (21:31)
[2017-12-26] MEDS: Nystatin Powder 15gm Bottle 1 APPLIC TOPICAL (21:32)
[2017-12-26 21:51] LABS: Bedside Glucose 154 mg/dL (70-110)
[2017-12-27] VITALS (17 sets, daily range): BP systolic 90–119; BP diastolic 41–64; PULSE 77–102; RESP 18–20; TEMP 36.6–39.4; O2SAT 92–94
[2017-12-27] MEDS: oxyCODONE 5 MG Tablet PO ×2 (00:49→20:54)
[2017-12-27] MEDS: Acetaminophen 325 MG Tablet 650 MG PO ×3 (04:29→21:02)
[2017-12-27] MEDS: Nystatin Powder 15gm Bottle 1 APPLIC TOPICAL ×3 (05:35→22:24)
[2017-12-27 05:54] LABS: Absolute Lymphocyte Count 0.14 X10^3/ul (0.83-4.51); Absolute Neutrophil Count 0.9 X10^3/uL (2.0-7.7); Eosinophil# 0.02 X10^3/uL; Eosinophils% 1.8 % (0-5); Hematocrit 27.3 % (37-47); Hemoglobin 9.2 g/dl (12.0-15.0); Lymphocyte # 0.14 X10^3/ul (4.0); Lymphocyte % 12.5 % (19-41); Mean Corp Hgb Conc 33.7 g/gl (32-36); Mean Corpuscular Hgb 28.7 pg (27.0-32.0); Mean Platelet Vol. 7.7 fl (6.2-12.0); Monocyte# 0.01 X10^3/uL; Monocyte% 0.9 % (0-10); Neutrophil # 0.93 X10^3/uL (2.7-7.7); Platelet Count 52 K/mm3 (150-450); RBC Distribution Width CV 15.7 % (11.6-14.6); RBC Distribution Width SD 47.5 fl (35.1-43.9); Red Blood Count 3.21 M/mm3 (4.2-5.4)
[2017-12-27 05:55] LABS: Differential Indicated SCAN CRITERIA MET; POSITIVE COUNT YES; POSITIVE DIFFERENTIAL YES; POSITIVE MORPHOLOGY NO
--- NOTE | 2017-12-27 05:55 | RAD_ITS ---
STUDY: X-RAY CHEST REASON FOR EXAM: Female, 62 years old. Pneumonia TECHNIQUE: Frontal and lateral views of the chest. COMPARISON: 12/25/2017. FINDINGS: The lungs are expanded. Left upper lung pneumonia/infiltrate. There is no demonstrated pleural abnormality. Normal size heart. Normal mediastinum and [place]. Normal visualized pulmonary arteries. Normal visualized aortic arch and descending thoracic aorta. Normal visualized thoracic spine. Normal visualized ribs, clavicles, and shoulders. There is no demonstrated abnormality of the visualized soft tissue structures of the upper abdomen. RAD/Chest PA and Lateral IMPRESSION: Unchanged left upper lung pneumonia. Electronically Signed: Ko Alberto DO at 9:58 EST , Service support ,
[2017-12-27 05:56] LABS: White Blood Count 1.1 K/mm3 (4.4-11.0)
[2017-12-27 06:14] LABS: Anion Gap 6 (5-15); BUN 11 mg/dL (7-18); BUN/Creat Ratio 23.6 RATIO (10-20); Calcium,Total 8.4 mg/dL (8.5-10.1); Chloride 105 mmol/L (98-107); Creatinine, Serum 0.47 mg/dL (0.55-1.02); EST Glomerular Filtration Rate 144 mL/min (>60); Est Glom Filt Rate - Afr Amer 175 mL/min (>60); Estimated Creatinine Clearance 99.42 ml/min; Glucose 99 mg/dL (74-106); Phosphorus 2.5 mg/dL (2.5-4.9); Potassium 3.7 mmol/L (3.5-5.1); Sodium Level 138 mmol/L (136-145)
[2017-12-27 06:56] LABS: Bedside Glucose 114 mg/dL (70-110)
[2017-12-27] MEDS: Ipratropium/Albuterol Sulfate 3 ML AMPUL.NEB INHALATION ×4 (07:34→18:43)
--- NOTE | 2017-12-27 09:14 | PN_ITS ---
Patient Problems: Active and Suspected Problems Metastasis to brain (Acute) Sepsis due to left perihilar pneumonia (Acute) Subjective: Day #3 vancomycin and Aztreonam T-max was 101.1 in the past 24 hours. Blood pressure and heart rate are stable. She is 94% saturated on a 3 L nasal cannula today. Poor oral intake. Fluid balance since admission is -687. White blood cell count today is 1.1 with an absolute neutrophil count of 933. Hemoglobin is stable at 9.2 and the platelets are 52,000 today. Electrolytes are within normal limits and the BUN is 11 with a creatinine of 0.47. Blood sugars are well controlled. Chest x-ray shows persistent diffuse infiltrates on the left side which is essentially unchanged from admission. Sputum culture grew normal respiratory nicole. Final blood cultures are still pending but no growth to date. - Physical Exam General: Alert, Oriented x3, Cooperative, No apparent distress, - - looks less fatigued today and she is visiting with company appetite is starting to increase a little....she is not on a supplement HEENT: GAV[place] RI[place]MI Oral: Moist Mucosa Neck: No JVD, No Nodes Lungs: Rales - coarse on the left anterior and posterior. Less oxygen requirement today No conversational dyspnea Cardiovascular: Regular rate, Regular Rhythm, Normal S1, Normal S2, No Gallop Abdomen: Bowel Sounds Present, Soft, Non Tender, Non-Distended, - - no diarrhea Extremities: No edema Psych/Mental Status: Normal Affect, Appropriate Vital Signs Temp Pulse Resp BP Pulse Ox 98.4 F 83 18 114/55 L 94 12/27/17 08:10 12/27/17 08:10 12/27/17 08:10 12/27/17 08:10 12/27/17 08:11 Oxygen Flow Rate 3 Oxygen Delivery Method Nasal Cannula Weight: 203 lb 14.841 oz Body Mass Index (BMI) 37.3 Intake and Output for Last 24 Hours 12/25/17 12/26/17 12/27/17 23:59 23:59 23:59 Intake Total 3030 / 3030 3308 / 3308 1500 / 1500 Output Total 4175 / 4175 4150 / 4150 200 / 200 Balance -1145 / -1145 -842 / -842 1300 / 1300 Microbiology Past 72 Hours 12/25/17 09:30 Gram Stain - Final Sputum, Expectorated/Coughed Respiratory Culture - Final 12/25/17 13:55 - Final Mucosa - Nose Laboratory Tests Past 24 Hrs 12/27/17 12/27/17 05:28 05:28 WBC 1.1 L* RBC 3.21 L Hgb 9.2 L Hct 27.3 L MCV 85.0 MCH 28.7 MCHC 33.7 RDW 15.7 H RDW Differential 47.5 H Plt Count 52 L MPV 7.7 Immature Gran % (Auto) 1.800 H Neut % (Auto) 83.0 H Lymph % (Auto) 12.5 L [place] % (Auto) 0.9 Eos % (Auto) 1.8 Baso % (Auto) 0.0 Absolute Neuts (auto) 0.9 L Absolute Lymphs (auto) 0.14 L Total Counted Not Reportable Diff Path Review February Sodium 138 Potassium 3.7 Chloride 105 Carbon Dioxide 27.0 Anion Gap 6 BUN 11 Creatinine 0.47 L Estim Creat Clear Calc 99.42 Est GFR (MDRD) Af Amer 175 Est GFR (MDRD) Non-Af 144 BUN/Creatinine Ratio 23.6 H Glucose 99 Calcium 8.4 L Phosphorus 2.5 Magnesium 2.0 POC Glucose 12/27/17 12/26/17 12/26/17 06:46 21:27 16:56 POC Glucose 114 H 154 H 124 H 12/26/17 11:45 POC Glucose 86 Assessment/Plan Active and Suspected Problems Metastasis to brain (Acute) Sepsis due to left perihilar pneumonia (Acute) Impressions 1. HCAP with severe sepsis 2. Acute respiratory failure with hypoxemia 3. Pancytopenia secondary to chemotherapy/small cell lung cancer 4. Small cell lung cancer with metastasis to the brain 5. Diabetes mellitus type 2 6. Hx of DVT per Dr. Kelley - on Apixaban 7. Hypertension/hyperlipidemia/obesity/coronary artery disease-complicate care , management, recovery and prognosis continue the Aztreonam and the Vancomycin The Vanco trough is low....will discuss a increase in dose, frequency or both with the pharmacist Start Granix recheck lab in the AM Increase activity Add a nutritional supplement since her appetite is decreased
[2017-12-27] MEDS: FLUoxetine 20 MG Capsule PO (10:10)
[2017-12-27] MEDS: Famotidine 20 MG Tablet PO ×2 (10:10→22:26)
[2017-12-27] MEDS: guaiFENesin 1,200 MG Tablet 1200 MG PO ×2 (10:10→22:25)
[2017-12-27] MEDS: APIXABAN 2.5 MG TABLET PO ×2 (10:10→22:17)
[2017-12-27] MEDS: TBO-FILGRASTIM 300 MCG/0.5 ML ML SC (10:11)
[2017-12-27] MEDS: Metoprolol(XL)Succ 25 MG Tablet PO (10:14)
[2017-12-27 10:38] LABS: Vancomycin, Trough Level 5.7 ug/mL (5.0-15.0)
[2017-12-27 12:40] LABS: Bedside Glucose 144 mg/dL (70-110)
[2017-12-27] MEDS: Glucerna Shake 120 ML LIQUID PO ×3 (14:09→22:23)
--- NOTE | 2017-12-27 14:47 | CPS ---
Patient resting at this time
[2017-12-27] MEDS: Magnesium Hydroxide 30 ML UDC PO (15:13)
[2017-12-27] MEDS: Ketorolac 15 MG/ML Vial IV (15:41)
[2017-12-27] MEDS: 0.9% NaCl Peripheral Flush Adult/Peds IV (15:41)
[2017-12-27 17:18] LABS: Bacteria 0 SEEN /hpf (None Seen); Mucous, Urine 0 SEEN /hpf (<or=2+); Squamous Epithelial Cells - UA 0 SEEN /hpf (5-10)
[2017-12-27 17:21] LABS: Bedside Glucose 146 mg/dL (70-110)
[2017-12-27 17:37] LABS: Color, Urine Yellow (Yellow); Glucose, Dipstick Normal (Normal); Ketone-Dipstick Negative (Negative); Leukocyte Esterase-Dipstick Negative /ul (Negative); Nitrite-Dipstick Negative (Negative); Occult Blood-Urine 10 /ul (Negative); Protein-Dipstick 15 mg/dl (Negative); Specific Gravity, Urine 1.005 (1.002-1.030); Urine Bilirubin Dipstick Negative (Negative); Urine Clarity Clear (Clear); Urine Urobilinogen 1 mg/dl (Normal)
[2017-12-27 17:45] LABS: Red Blood Cells-Urine 0-5 SEEN /hpf (0-5); White Blood Cells 0-5 SEEN /hpf (0-5)
[2017-12-27] MEDS: Atorvastatin Calcium 20 MG Tablet PO (22:25)
[2017-12-27] MEDS: Mirtazapine 15 MG Tablet PO (22:26)
[2017-12-27 22:41] LABS: Bedside Glucose 236 mg/dL (70-110)
[2017-12-28] VITALS (20 sets, daily range): BP systolic 97–152; BP diastolic 48–86; PULSE 84–109; RESP 16–24; TEMP 36.8–37.7; O2SAT 86–94
[2017-12-28] MEDS: Acetaminophen 325 MG Tablet 650 MG PO ×3 (03:33→15:45)
[2017-12-28] MEDS: oxyCODONE 5 MG Tablet PO (03:34)
[2017-12-28] MEDS: Albuterol 2.5 MG/3 ML VIAL.NEB. INHALATION (04:33)
[2017-12-28] MEDS: Nystatin Powder 15gm Bottle 1 APPLIC TOPICAL ×3 (05:27→23:19)
[2017-12-28 06:56] LABS: Bedside Glucose 160 mg/dL (70-110)
--- NOTE | 2017-12-28 07:09 | CT_ITS ---
STUDY: CT CHEST WITHOUT CONTRAST REASON FOR EXAM: Female, 62 years old. Small cell lung cancer with metastatic metastasis to brain RADIATION DOSAGE (If Supplied By Facility): CTDIvol = ( 19.75 ) mGy, DLP = ( 705.86 ) mGycm TECHNIQUE: Transaxial imaging was performed without the administration of intravenous contrast material. Multiplanar coronal and sagittal images were reformatted. Individualized dose optimization techniques were used for this CT. COMPARISON: Chest x-ray December 27, 2017. FINDINGS: There are bilateral groundglass opacities of the lungs with left upper and mid lung airspace consolidation Small left pleural effusion. There are calcifications of the coronary arteries. Normal mediastinum. Normal hilar regions. Normal unenhanced pulmonary arteries. There is atherosclerotic calcification of the aortic arch with tortuosity and elongation of the aortic arch and descending thoracic aorta. There are multi-level degenerative changes of the thoracic spine. Mild compression of the lower thoracic spine Postoperative changes of the cervical spine. Degenerative change shoulders. There is no demonstrated abnormality of the visualized upper abdomen. CT/Chest without Contrast IMPRESSION: Left greater than right infiltrates or edema. Electronically Signed: Oleg Ovalles MD at 10:40 EST , Service support ,
--- NOTE | 2017-12-28 07:10 | PCM.PROGNOTE ---
Patient Problems: Active and Suspected Problems Metastasis to brain (Acute) Sepsis due to left perihilar pneumonia (Acute) Subjective: The patient is a 62 year-old female with past medical history of hypertension, diabetes mellitus type 2, hyperlipidemia, obesity, history of subarachnoid hemorrhage, coronary artery disease and small cell lung cancer metastatic to the brain admitted to the hospital with severe sepsis secondary to healthcare acquired pneumonia. She received her last chemotherapy 3 days prior to presenting to the emergency room. Initial blood cultures were negative and sputum culture had normal respiratory nicole. She was being treated with aztreonam and Vanco. On 12/27 had recurrent temp spikes and increased oxygen requirement. cultures have been repeated and Fluconazole and Levaquin have been added to the drug regimen. Vanc trough on 12/27 low at 5.7 and dose has been adjusted. Dr. Mckeon is following. She has been afebrile again since approximately 1600 on 12/27/2017. Fluid balance is +1221 since admission. She had 1200 cc of urine out overnight. All lab was personally reviewed. The white blood cell count today is 0.6 with 84% neutrophils and no immature granulocytes today. She was started on Granix 12/27/17. Hemoglobin is 8 and the platelets are down to 37,000 today. Electrolytes are within normal limits and the BUN is 15 with a creatinine of 0.49. Mag is 1.8 today. Repeat UA on 12/27/2017 showed 0-5 WBCs per high-power field with no bacteria and it was negative nitrite. Blood sugars are adequately controlled. Respiratory panel is negative. Repeat urine and blood cultures are pending. Tells me that she is feeling better than yesterday but, she continues to have shaking chills. She denies SOB . She is currently 94% on a 5 liter NC She has a productive cough but is not always able to expectorate. She is very weak. Denies diarrhea, mouth pain or painful swallowing, No abdominal or chest pain but she is c/o back pain. She has a [place]rans Patch 20mcg. ANC is 302 today - Physical Exam General: Alert, Oriented x3, Cooperative, - - looks weak and fatigued. Hacing shaking chills currently Oral: Moist Mucosa, No Gingival or Mucosal Lesions/ Ulcerations Neck: No Nuchal Rigidity, Trachea Midline Lungs: No rhonchi, No wheeze, Rales, - - coarse crackles on the left anteriorly and the ALEJO posteriorly. Now also has crackles on the right side anteriorly. Cardiovascular: Regular rate, Regular Rhythm, Normal S1, Normal S2, No murmurs, No Gallop Abdomen: Bowel Sounds Present, Soft, Non-Distended, - - no guarding with palpation Extremities: No cyanosis, No edema Skin: No rashes, No breakdown Neurological: Cranial nerves II-XII grossly intact, Neuro grossly intact Psych/Mental Status: Appropriate Vital Signs Temp Pulse Resp BP Pulse Ox 98.3 F 88 20 H 107/57 L 93 12/28/17 05:35 12/28/17 05:35 12/28/17 05:35 12/28/17 05:35 12/28/17 05:35 Oxygen Flow Rate 4 Oxygen Delivery Method Nasal Cannula Weight: 203 lb 14.841 oz Body Mass Index (BMI) 37.3 Intake and Output for Last 24 Hours 12/26/17 12/27/17 12/28/17 23:59 23:59 23:59 Intake Total 3308 / 3308 3203 / 3203 1805 / 1805 Output Total 4150 / 4150 600 / 600 1200 / 1200 Balance -842 / -842 2603 / 2603 605 / 605 Microbiology Past 72 Hours 12/25/17 09:30 Gram Stain - Final Sputum, Expectorated/Coughed Respiratory Culture - Final 12/25/17 13:55 - Final Mucosa - Nose Laboratory Tests Past 24 Hrs 12/27/17 12/27/17 12/28/17 09:47 16:50 05:49 WBC Pending RBC Pending Hgb Pending Hct Pending MCV Pending MCH Pending MCHC Pending RDW Pending RDW Differential Pending Plt Count Pending Neut % (Auto) Pending Absolute Neuts (auto) Pending Total Counted Pending Sodium Potassium Chloride Carbon Dioxide Anion Gap BUN Creatinine Est GFR (MDRD) Af Amer Est GFR (MDRD) Non-Af BUN/Creatinine Ratio Glucose Calcium Magnesium Urine Color Yellow Urine Clarity Clear Urine pH 7.0 Ur Specific Broad Top 1.005 Urine Protein 15 H Urine Glucose (UA) Normal Urine Ketones Negative Urine Occult Blood 10 H Urine Nitrite Negative Urine Bilirubin Negative Urine Urobilinogen 1 H Ur Leukocyte Esterase Negative Urine RBC 0-5 SEEN Urine WBC 0-5 SEEN Ur Squamous Epith Cells 0 SEEN Urine Bacteria 0 SEEN Urine Mucus 0 SEEN Vancomycin Trough 5.7 12/28/17 05:49 WBC RBC Hgb Hct MCV MCH MCHC RDW RDW Differential Plt Count Neut % (Auto) Absolute Neuts (auto) Total Counted Sodium Pending Potassium Pending Chloride Pending Carbon Dioxide Pending Anion Gap Pending BUN Pending Creatinine Pending Est GFR (MDRD) Af Amer Pending Est GFR (MDRD) Non-Af Pending BUN/Creatinine Ratio Pending Glucose Pending Calcium Pending Magnesium Pending Urine Color Urine Clarity Urine pH Ur Specific Broad Top Urine Protein Urine Glucose (UA) Urine Ketones Urine Occult Blood Urine Nitrite Urine Bilirubin Urine Urobilinogen Ur Leukocyte Esterase Urine RBC Urine WBC Ur Squamous Epith Cells Urine Bacteria Urine Mucus Vancomycin Trough POC Glucose 12/28/17 12/27/17 12/27/17 06:47 22:12 16:56 POC Glucose 160 H 236 H 146 H 12/27/17 12:28 POC Glucose 144 H Assessment/Plan Active and Suspected Problems Metastasis to brain (Acute) Sepsis due to left perihilar pneumonia (Acute) Antibiotics day #4. Aztreonam, Vanco, Levaquin and also Fluconazole(#2) Impressions 1. HCAP with severe sepsis in an immunocompromised host - initial blood and sputum cultures are negative. Re-cultured on 12/27/17. 2. Acute respiratory failure with hypoxemia 3. Pancytopenia secondary to chemotherapy/small cell lung cancer -0 started on Granix on 12/27/17 4. Small cell lung cancer with metastasis to the brain 5. Diabetes mellitus type 2 - blood sugars have been adequately controlled 6. Hx of DVT per Dr. Kelley - on Apixaban....held on 12/28 due to severe thrombocytopenia 7. Hypertension/hyperlipidemia/obesity/coronary artery disease-complicate care, management, recovery and prognosis 8. back pain continue the Aztreonam. Levaquin, fluconazole and the Vancomycin Continue supplemental oxygen Continue Granix CT chest today Hold the Eliquis for now because of the worsening thrombocytopenia......there is not really a good option for anticoagulation at this time.....Lovenox and heparin will both drop the platelets. If the platelets are improving tomorrow will restart the Eliquis. May need an IVC filter if she survives the next 48 hours Add Buprenorphine tabs PRN for pain relief and Fentanyl for severe pain BIPAP is an option if she starts to have labored respirations....if she is agreeable Try percussion vest to see if she is able to clear secretions better Repeat Lab in the AM She is a DNR CCA so will keep her on MS 2 for now If she survives she will definitely need SNF [place] Dr. Vinson is falling If things get worse today will discuss code status again with her and if she wants me to notify her family........she is in guarded condition
[2017-12-28 07:25] LABS: Absolute Lymphocyte Count 0.07 X10^3/ul (0.83-4.51); Absolute Neutrophil Count 0.5 X10^3/uL (2.0-7.7); Eosinophil# 0.01 X10^3/uL; Eosinophils% 1.8 % (0-5); Hematocrit 24.1 % (37-47); Lymphocyte # 0.07 X10^3/ul (4.0); Lymphocyte % 12.5 % (19-41); Mean Corp Hgb Conc 33.2 g/gl (32-36); Mean Corpuscular Hgb 28.6 pg (27.0-32.0); Mean Corpuscular Volume 86.1 fL (81-99); Mean Platelet Vol. 8.9 fl (6.2-12.0); Monocyte# 0.01 X10^3/uL; Monocyte% 1.8 % (0-10); Neutrophil # 0.47 X10^3/uL (2.7-7.7); Neutrophil % 83.9 % (47-70); Platelet Count 37 K/mm3 (150-450); RBC Distribution Width CV 15.7 % (11.6-14.6); RBC Distribution Width SD 47.9 fl (35.1-43.9)
[2017-12-28 07:27] LABS: POSITIVE COUNT YES; POSITIVE DIFFERENTIAL YES; POSITIVE MORPHOLOGY YES
[2017-12-28 07:28] LABS: Differential Indicated SCAN CRITERIA MET; White Blood Count 0.6 K/mm3 (4.4-11.0)
[2017-12-28] MEDS: Ipratropium/Albuterol Sulfate 3 ML AMPUL.NEB INHALATION ×4 (07:28→19:09)
--- NOTE | 2017-12-28 07:57 | NURSING ---
Pt off unit for CT scan of chest at this time.
[2017-12-28 08:17] LABS: Anion Gap 8 (5-15); BUN 15 mg/dL (7-18); BUN/Creat Ratio 30.9 RATIO (10-20); Calcium,Total 7.9 mg/dL (8.5-10.1); Chloride 107 mmol/L (98-107); Creatinine, Serum 0.49 mg/dL (0.55-1.02); EST Glomerular Filtration Rate 137 mL/min (>60); Est Glom Filt Rate - Afr Amer 166 mL/min (>60); Estimated Creatinine Clearance 95.36 ml/min; Glucose 171 mg/dL (74-106); Magnesium 1.8 mg/dL (1.6-2.6); Potassium 4.4 mmol/L (3.5-5.1); Sodium Level 137 mmol/L (136-145)
--- NOTE | 2017-12-28 08:35 | NURSING ---
Reported critical lab values to Dr Story. States to hold pt's Gladys today.
[2017-12-28] MEDS: Famotidine 20 MG Tablet PO (10:16)
[2017-12-28] MEDS: guaiFENesin 1,200 MG Tablet 1200 MG PO (10:16)
[2017-12-28] MEDS: FLUoxetine 20 MG Capsule PO (10:16)
[2017-12-28] MEDS: Metoprolol(XL)Succ 25 MG Tablet PO (10:25)
--- NOTE | 2017-12-28 11:07 | NURSING ---
Tylenol 650mg PO given at 1000 for fever 99.4.
[2017-12-28 11:51] LABS: Bedside Glucose 116 mg/dL (70-110)
[2017-12-28] MEDS: TBO-FILGRASTIM 300 MCG/0.5 ML ML SC (12:40)
[2017-12-28] MEDS: Buprenorphine HCl 2 MG TAB.SUBL SL ×2 (15:45→22:29)
[2017-12-28 16:26] LABS: Bedside Glucose 151 mg/dL (70-110)
--- NOTE | 2017-12-28 17:47 | NURSING ---
Notified Dr Story of what appears to be petichiae in bilateral armpit regions extending to upper back. No new orders at this time. Pt's Eliquis was held today due to platelet count.
--- NOTE | 2017-12-28 19:26 | NURSING ---
Per respiratory therapist patient is refusing bipap or any other respiratory interventions to assist with making it easier to breath. Respiratory therapist contacted Dr. Story who is going to call the family. Patient resting comfortably in bed, using accessory muscles to breath but in no respiratory distress.
--- NOTE | 2017-12-28 19:49 | CPS ---
Upon arrival to pt's room, pt had accessory muscle usage and was tachypneic, asked patient if she wanted to try bipap to try to ease her breathing and explained bipap to her, pt refused multiple times. Pt refused the vest tx this evening as well. Breathing tx given and pt resting on 5L O2. Rn notified and Dr. Story called to update on pt's status, Dr. Story to update family.
--- NOTE | 2017-12-28 20:44 | PCM.PN.BLA ---
Progress Note She has become [id number] and breathing is somewhat labored. She has been sleeping a lot. She denies pain and does not want to try BIPAP. She is currently 91% on a 5 LPM nasal cannula. She is hemodynamically stable. She is getting worse despit aggressive tx and I have a suspicion she may not rally and make it through this episode of severe sepsis. I called her Mother Airam Ly and explained the situation and she is going to come to the hospital to sit with her. will continue with the current treatment but, if she continues to decline or she becomes hemodynamically unstable will need to discuss hospice referral with her mother because Airam is confused and unable to make that decision at this time.
--- NOTE | 2017-12-28 20:49 | PN_ITS ---
Progress Note She has become [id number] and breathing is somewhat labored. She has been sleeping a lot. She denies pain and does not want to try BIPAP. She is currently 91% on a 5 LPM nasal cannula. She is hemodynamically stable. She is getting worse despit aggressive tx and I have a suspicion she may not rally and make it through this episode of severe sepsis. I called her Mother Airam Ly and explained the situation and she is going to come to the hospital to sit with her. will continue with the current treatment but, if she continues to decline or she becomes hemodynamically unstable will need to discuss hospice referral with her mother because Airam is confused and unable to make that decision at this time.
[2017-12-28 21:21] LABS: Bedside Glucose 164 mg/dL (70-110)
--- NOTE | 2017-12-28 21:25 | NURSING ---
From [facility] in [place] called per patient's mother's request.
[2017-12-29] VITALS (7 sets, daily range): BP systolic 110–127; BP diastolic 61–63; PULSE 100–114; RESP 16; TEMP 36.6–37.2; O2SAT 86–94
[2017-12-29] MEDS: Buprenorphine HCl 2 MG TAB.SUBL SL (04:49)
[2017-12-29 05:32] LABS: International Normalized Ratio 1.4; Prothrombin Time (Protime)PT. 17.2 SECONDS (11.7-14.9)
[2017-12-29 05:43] LABS: Absolute Lymphocyte Count 0.17 X10^3/ul (0.83-4.51); Absolute Neutrophil Count 0.4 X10^3/uL (2.0-7.7); Basophil# 0.01 X10^3/uL; Basophil% 1.4 % (0-1); Eosinophil# 0.01 X10^3/uL; Eosinophils% 1.4 % (0-5); Hematocrit 25.4 % (37-47); Hemoglobin 8.5 g/dl (12.0-15.0); Lymphocyte # 0.17 X10^3/ul (4.0); Lymphocyte % 23.9 % (19-41); Mean Corp Hgb Conc 33.5 g/gl (32-36); Mean Corpuscular Hgb 28.4 pg (27.0-32.0); Mean Corpuscular Volume 84.9 fL (81-99); Mean Platelet Vol. 9.1 fl (6.2-12.0); Monocyte# 0.02 X10^3/uL; Monocyte% 2.8 % (0-10); Neutrophil # 0.39 X10^3/uL (2.7-7.7); RBC Distribution Width CV 15.7 % (11.6-14.6); RBC Distribution Width SD 47.8 fl (35.1-43.9); Red Blood Count 2.99 M/mm3 (4.2-5.4)
[2017-12-29 05:55] LABS: ALB/GLOB Ratio 0.3 RATIO (0.9-2.4); AST(SGOT) 19 U/L (15-37); Alanine Aminotransfer ALT/SGPT 11 U/L (13-56); Albumin, Serum 1.4 g/dL (3.2-5.0); Alkaline Phosphatase 119 U/L (45-117); Anion Gap 9 (5-15); BUN 12 mg/dL (7-18); BUN/Creat Ratio 21.4 RATIO (10-20); Calcium,Total 8.5 mg/dL (8.5-10.1); Chloride 101 mmol/L (98-107); Creatinine, Serum 0.56 mg/dL (0.55-1.02); EST Glomerular Filtration Rate 116 mL/min (>60); Est Glom Filt Rate - Afr Amer 141 mL/min (>60); Estimated Creatinine Clearance 83.44 ml/min; Globulin 4.5 g/dL (2.2-4.2); Glucose 141 mg/dL (74-106); Magnesium 1.8 mg/dL (1.6-2.6); Phosphorus 3.6 mg/dL (2.5-4.9); Protein, Total 5.9 g/dL (6.4-8.2); Sodium Level 134 mmol/L (136-145)
--- NOTE | 2017-12-29 05:55 | RAD_ITS ---
STUDY: X-RAY CHEST REASON FOR EXAM: Female, 62 years old. Pneumonia. Neutropenic fever. TECHNIQUE: AP portable chest. COMPARISON: December 27, 2017. CT chest December 28, 2017. FINDINGS: No significant change in extensive patchy left upper and left middle lobe airspace opacities. A lesser extent there is scattered opacities in the right lung best seen on the CT scan. No effusions. No pneumothorax. Normal size heart. Normal mediastinum and [place]. Normal visualized pulmonary arteries. Normal visualized aortic arch and descending thoracic aorta. Normal visualized thoracic spine. Normal visualized ribs, clavicles, and shoulders. Postoperative changes of lower cervical fusion. There is no demonstrated abnormality of the visualized soft tissue structures of the upper abdomen. RAD/Chest 1 View (Portable) IMPRESSION: No significant change in extensive airspace opacities suggestive of pneumonia left much greater than right most prominent in the left upper and left lower lobes. Electronically Signed: Boubacar Casas MD at 5:48 EST , Service support ,
[2017-12-29 06:13] LABS: Differential Indicated SCAN CRITERIA MET; POSITIVE COUNT YES; POSITIVE DIFFERENTIAL YES; POSITIVE MORPHOLOGY YES; Platelet Count 34 K/mm3 (150-450); White Blood Count 0.7 K/mm3 (4.4-11.0)
[2017-12-29] MEDS: Nystatin Powder 15gm Bottle 1 APPLIC TOPICAL ×2 (06:32→14:35)
[2017-12-29 06:50] LABS: Bedside Glucose 160 mg/dL (70-110)
[2017-12-29] MEDS: Ipratropium/Albuterol Sulfate 3 ML AMPUL.NEB INHALATION ×2 (06:58→10:50)
[2017-12-29 07:09] LABS: Differential Comment SCANNED
[2017-12-29 09:02] LABS: Vancomycin, Trough Level 18.9 ug/mL (5.0-15.0)
[2017-12-29] MEDS: guaiFENesin 1,200 MG Tablet 1200 MG PO (09:57)
[2017-12-29] MEDS: Metoprolol(XL)Succ 25 MG Tablet PO (09:58)
[2017-12-29] MEDS: FLUoxetine 20 MG Capsule PO (09:58)
[2017-12-29] MEDS: TBO-FILGRASTIM 300 MCG/0.5 ML ML SC (10:01)
--- NOTE | 2017-12-29 10:32 | PCM.RX.CS ---
Subjective/Objective Date: 12/29/17 Time: 10:32 Antibiotic: Vancomycin Type of Consult: Follow-up Current Antibiotic Regimen: Medications Vancomycin HCl 1,750 mg/ (Sodium Chloride) 535 mls @ 260 mls/hr IV Q12H ANTONY Last Admin: 12/29/17 08:23 Dose: 260 mls/hr Indications for Therapy: Respiratory Labs: Sodium 134 mmol/L (136-145) L 12/29/17 04:55 Potassium 4.0 mmol/L (3.5-5.1) 12/29/17 04:55 Chloride 101 mmol/L (98-107) 12/29/17 04:55 Carbon Dioxide 24.0 mmol/L (21.0-32.0) 12/29/17 04:55 Anion Gap 9 (5-15) 12/29/17 04:55 BUN 12 mg/dL (7-18) 12/29/17 04:55 Creatinine 0.56 mg/dL (0.55-1.02) 12/29/17 04:55 Est GFR (MDRD) Af Amer 141 mL/min (>60) 12/29/17 04:55 Est GFR (MDRD) Non-Af 116 mL/min (>60) 12/29/17 04:55 BUN/Creatinine Ratio 21.4 RATIO (10-20) H 12/29/17 04:55 Glucose 141 mg/dL (74-106) H 12/29/17 04:55 Vancomycin Trough 18.9 ug/mL (5.0-15.0) H 12/29/17 08:20 Estimated Creatinine Clearance: est 80-90ml/min Pharmacy Plan for Drug Dosing: Vancomycin trough within goal range (18.9), recommend to continue current therapy with follw-up of trough in 48hrs. Pharmacy Service will continue to monitor and adjust dosing as required. Pharmacy to order these labs: Trough - vancomycin Labs to be done on (date): 12/31/17 Labs to be done (time): 08:30
--- NOTE | 2017-12-29 11:16 | CASEMGMT ---
SW left message for Penny w/[facility] letting her know that this SW does not yet know about pt's discharge, it is not anticipated pt will be ready today however, as pt is having more difficulty breathing. SW will continue to follow for discharge needs and any additional referrals. RAJINDER Cross, [employer]
--- NOTE | 2017-12-29 11:21 | PCM.PN.ID ---
Patient Problems: Active and Suspected Problems Metastasis to brain (Acute) Sepsis due to left perihilar pneumonia (Acute) Subjective: Not feeling well. No further fever. Mouth is sore. Still cough, but less sputum. Some n/v/d. - Physical Exam General: Cooperative, - - ill appearing Oral: No Gingival or Mucosal Lesions/ Ulcerations Lungs: Clear to auscultation, Normal air movement Cardiovascular: Regular rate, Regular Rhythm Abdomen: Soft, Non Tender, Non-Distended Skin: Rash Present Vital Signs Temp Pulse Resp BP Pulse Ox 99.0 F 114 H 16 127/63 H 90 12/29/17 09:45 12/29/17 09:58 12/29/17 09:45 12/29/17 09:45 12/29/17 09:45 Oxygen Flow Rate 5 Oxygen Delivery Method Nasal Cannula Weight: 92.5 kg Body Mass Index (BMI) 37.3 Intake and Output for Last 24 Hours 12/27/17 12/28/17 12/29/17 23:59 23:59 23:59 Intake Total 3203 / 3203 3439 / 3439 949 / 949 Output Total 600 / 600 1850 / 1850 425 / 425 Balance 2603 / 2603 1589 / 1589 524 / 524 Microbiology Past 72 Hours 12/27/17 16:50 Urine Culture - Preliminary Urine Catheter - Catheter Culture exhibits no growth. 12/27/17 09:20 Respiratory Panel (PCR) - Final Mucosa - Nasopharyngeal 12/25/17 09:30 Gram Stain - Final Sputum, Expectorated/Coughed Respiratory Culture - Final Laboratory Tests Past 24 Hrs 12/29/17 12/29/17 12/29/17 04:55 04:55 04:55 WBC 0.7 L* RBC 2.99 L Hgb 8.5 L Hct 25.4 L MCV 84.9 MCH 28.4 MCHC 33.5 RDW 15.7 H RDW Differential 47.8 H Plt Count 34 L* MPV 9.1 Immature Gran % (Auto) 15.500 H Neut % (Auto) 55.0 Lymph % (Auto) 23.9 [place] % (Auto) 2.8 Eos % (Auto) 1.4 Baso % (Auto) 1.4 H Absolute Neuts (auto) 0.4 L Absolute Lymphs (auto) 0.17 L Total Counted Not Reportable Differential Comment SCANNED Diff Path Review May foll PT 17.2 H INR 1.4 Sodium 134 L Potassium 4.0 Chloride 101 Carbon Dioxide 24.0 Anion Gap 9 BUN 12 Creatinine 0.56 Estim Creat Clear Calc 83.44 Est GFR (MDRD) Af Amer 141 Est GFR (MDRD) Non-Af 116 BUN/Creatinine Ratio 21.4 H Glucose 141 H Calcium 8.5 Phosphorus 3.6 Magnesium 1.8 Total Bilirubin 0.80 AST 19 ALT 11 L Alkaline Phosphatase 119 H Total Protein 5.9 L Albumin 1.4 L Globulin 4.5 H Albumin/Globulin Ratio 0.3 L Vancomycin Trough 12/29/17 08:20 WBC RBC Hgb Hct MCV MCH MCHC RDW RDW Differential Plt Count MPV Immature Gran % (Auto) Neut % (Auto) Lymph % (Auto) [place] % (Auto) Eos % (Auto) Baso % (Auto) Absolute Neuts (auto) Absolute Lymphs (auto) Total Counted Differential Comment Diff Path Review PT INR Sodium Potassium Chloride Carbon Dioxide Anion Gap BUN Creatinine Estim Creat Clear Calc Est GFR (MDRD) Af Amer Est GFR (MDRD) Non-Af BUN/Creatinine Ratio Glucose Calcium Phosphorus Magnesium Total Bilirubin AST ALT Alkaline Phosphatase Total Protein Albumin Globulin Albumin/Globulin Ratio Vancomycin Trough 18.9 H POC Glucose 12/29/17 12/28/17 12/28/17 06:29 21:09 16:01 POC Glucose 160 H 164 H 151 H 12/28/17 11:42 POC Glucose 116 H Route of nutrition/ use of supplements: [] Nutritional Intake: [] IV Site: [] Kong Catheter: [] - Assessment/Plan Antibiotics: [] Assessment/Plan: [] Active and Suspected Problems Metastasis to brain (Acute) Neutropenic fever - cxs remain neg. Initially covering for pneumonia, now with broadened coverage given fever 3/3 to 102.9 and low counts. On vanc, aztreonam, levaquin, fluconazole. will follow.
[2017-12-29 11:26] LABS: Bedside Glucose 144 mg/dL (70-110)
--- NOTE | 2017-12-29 11:46 | CASEMGMT ---
SW spoke w/physician, he and RN spoke w/brother at the bedside about hospice, brother and family are agreeable to speak w/hospice. SW spoke w/pt's brother at the bedside, he states pt's mother and sister can be here any time to meet. SW called [facility], faxed referral, appt set for 2:30pm. SW let pt's brother at the bedside know the time. OWEN let Penny at [facility] know via voicemail that pt may be going on hospice. RAJINDER Cross, DIRECTOR CLINICAL PHARMACOLOGY
[2017-12-29 13:17] LABS: Pathologist Review Reviewed
[2017-12-29 13:21] LABS: Pathologist Review Reviewed
--- NOTE | 2017-12-29 16:03 | NURSING ---
informed Dr Bennett that pt is approved for D/C to inpatient hospice care. he will enter D/C instructions. left messages with Dr Kelley's and Dr Mckeon's offices regarding pt transfer. report called to [facility].
--- NOTE | 2017-12-29 16:04 | DS.PCM_ITS ---
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) Sepsis due to left perihilar pneumonia (Acute) - Secondary Discharge Diagnosis Chronic Problems Metastatic small cell cancer (Chronic) Receiving palliative chemotherapy- Topotecan started on 12/22- HTN (hypertension) (Chronic) DM type 2 (diabetes mellitus, type 2) (Chronic) Hyperlipidemia (Chronic) Obesity (Chronic) H/O subarachnoid hemorrhage (Chronic) CAD (coronary artery disease) (Chronic) History of smoking (Chronic) Hospital Course and Treatment Operations: None Summary of Care Provided: The patient is a 62 year-old female with past medical history of and small cell lung cancer metastatic to the brain,hypertension, diabetes mellitus type 2, hyperlipidemia, obesity, history of subarachnoid hemorrhage, coronary artery disease who was admitted to the hospital with severe sepsis secondary to healthcare acquired pneumonia. She received her last chemotherapy 3 days prior to presenting to the emergency room. Initial blood cultures were negative and sputum culture had normal respiratory nicole. She was treated with broad- spectrum antibiotics Aztreonam and Vanco. On 12/27 had recurrent temp spikes and increased oxygen requirement. cultures have been repeated and Fluconazole and Levaquin have been added to the drug regimen. The patient continues to do poorly and has significant neutropenia, probably decided to pursue comfort focused care. The patient was seen by hospice and would now be transferred to inpatient hospice. Discharge Diet: No Restrictions Home Medications: Medications to take at Discharge Atorvastatin Calcium [Lipitor] 20 mg PO QHS 05/27/17 Buprenorphine 20 Mcg/Hr [Butrans 20 Mcg/Hr] 1 each TRANSDERM. TU 05/27/17 Fluoxetine [Prozac] 20 mg PO DAILY 05/27/17 Metoprolol Succinate 25 mg PO DAILY 05/27/17 Insulin Glargine,Hum.rec.anlog [Lantus] 30 unit SQ QHS 06/24/17 Apixaban [Eliquis] 2.5 mg PO BID 12/24/17 Guaifenesin [Mucinex] 600 mg PO BID 12/24/17 Meclizine HCl [Antivert] 25 mg PO TID PRN PRN 02/28/18 Mirtazapine [Remeron] 15 mg PO QHS 12/24/17 Omeprazole [Prilosec] 20 mg PO DAILY 12/24/17 Oxycodone HCl [Roxicodone] 10 mg PO Q6H PRN 12/24/17 ProCHLORPERazine [Compazine] 10 mg PO Q6H PRN PRN 12/24/17 Primary Care Physician: Vineet Cabral MD [Primary Care Provider] - In 1 Week Disposition: Hospice Medical Facility Patient Condition:: Poor Meaningful Use Info Meaningful Use Diagnoses (Choose all that apply): None applicable Code Visit Inpatient E&M: 15535 Disch Hosp
[2017-12-30 13:41] LABS: Pathologist Review Reviewed
== END 2017-12-29 17:00 | disposition hospice, inpatient (51) | DRG 871 ==
LOC: ED 22:47 → MS2 12-25 00:38
PROVIDERS: Internal Medicine; Admitting Provider Internal Medicine; Emergency Provider Emergency Medicine; Family Provider Family Medicine; PCP Family Medicine; Visit Provider Internal Medicine
DX: A41.9 Sepsis, unspecified organism (principal); J18.9 Pneumonia, unspecified organism; J96.01 Acute respiratory failure with hypoxia; G92 Toxic encephalopathy; D61.810 Antineoplastic chemotherapy induced pancytopenia; C79.31 Secondary malignant neoplasm of brain; E87.8 Other disorders of electrolyte and fluid balance, not elsewhere classified; C34.92 Malignant neoplasm of unspecified part of left bronchus or lung; D72.829 Elevated white blood cell count, unspecified; R65.20 Severe sepsis without septic shock; Z87.891 Personal history of nicotine dependence; Y95 Nosocomial condition; I25.10 Atherosclerotic heart disease of native coronary artery without angina pectoris; E11.65 Type 2 diabetes mellitus with hyperglycemia; Z86.73 Personal history of transient ischemic attack (TIA), and cerebral infarction without residual deficits; E66.9 Obesity, unspecified; Z68.37 Body mass index [BMI] 37.0-37.9, adult; R53.1 Weakness; M19.90 Unspecified osteoarthritis, unspecified site; T45.1X5A Adverse effect of antineoplastic and immunosuppressive drugs, initial encounter; Y92.89 Other specified places as the place of occurrence of the external cause; Z66 Do not resuscitate; I10 Essential (primary) hypertension; E78.5 Hyperlipidemia, unspecified; F32.9 Major depressive disorder, single episode, unspecified; Z95.9 Presence of cardiac and vascular implant and graft, unspecified; Z79.4 Long term (current) use of insulin; Z79.02 Long term (current) use of antithrombotics/antiplatelets; Z79.899 Other long term (current) drug therapy; F43.10 Post-traumatic stress disorder, unspecified; F11.21 Opioid dependence, in remission; Z86.718 Personal history of other venous thrombosis and embolism
CPT/HCPCS: 36415; 36600; 51702; 70450; 71045; 71046; 71250; 80048; 80053; 80202; 81001; 82803; 82962; 83036; 83605; 83735; 84100; 85025; 85610; 85730; 86140; 87040; 87070; 87086; 87205; 87449; 87632; 87633; 93005; 94640; 94667; 94668; 97110; 97162; 97166; 97530; 97535; 99285; J7030; J7040; A4216; J1447; J3490